=== PATIENT | male | born 1965 | race Caucasian/White ===

== ENCOUNTER 2020-12-02 08:54 | Inpatient (IN) ==
--- NOTE | 2020-12-02 09:48 | Emergency Department Note ---
History of Present Illness General Chief complaint: Shortness of Breath/Dyspnea Stated complaint: SOB,WEAKNESS,CP,NO APPETITE,COUGH Time Seen by Provider: 12/02/20 09:09 Source: patient Mode of arrival: ambulatory Limitations: no limitations History of Present Illness Maximum Pain Intensity: 5 This patient is a 55-year-old male who comes in after feeling sick since November 01 he is pretty sure he got Covid that day he felt very sick there is some exposures he had nausea fever cough body aches loss of taste and smell he was feeling better at one point until about 2 weeks ago he has had some shortness of breath he has been coughing he gets bilateral frontal chest pain when he coughs or takes a deep breath. His appetite is been decreased he has had a low-grade temperature but no significant fever. He was not been vaccinated. No dysuria hematuria. No fall or trauma. Home Medications Medication Instructions Recorded Confirmed Type No Known Home Medications 12/02/20 12/02/20 History Allergies Allergy/AdvReac Type Severity Reaction Status Date / Time No Known Allergies Allergy Unverified 12/02/20 09:39 Past Med/Surg History Medical History (Updated 12/02/20 @ 16:05 by Wil Ortega MD) No significant past medical history Surgical History (Updated 12/02/20 @ 14:50 by Zhanna Mcneal PA-C) No significant past surgical history Family History Mother Diabetes Hypertension Father Myocardial infarction Coronary heart disease Hypertension Diabetes Brother Diabetes Sister Diabetes Social History Smoking Status: Never smoker Tobacco Type: Smokeless Tobacco (Dip or Chew) Cigarettes Per Day: 1/2 can of snuff/day; Hx Alcohol Use: Yes Alcohol type: beer Alcohol Intake Frequency Comment: prior to covid sx, daily, last drink a month ago Hx Substance Use: No Preferred Language: French Communication Ability: Effective Flight Hostess Required: No Beliefs That Will Affect Care: None marital status: Current Living Situation: Spouse current occupational status: employed current occupation: [employer] Feels Safe at Home: Yes Review of Systems A total of 10 systems reviewed and were otherwise negative Physical Exam Vital Signs Vital Signs - 24 hr 12/02/20 09:01 12/02/20 10:35 12/02/20 10:37 Temperature 37.7 C H Temperature Source Temporal Artery Scan Pulse Rate 128 H 107 H Pulse Rate [Finger] 107 H Pulse Rate from SpO2 Sensor 108 H Pulse Rhythm [Finger] Pulse Strength [Finger] Respiratory Rate 24 22 21 Respiratory Effort / Characteristics Short of Breath Respiratory Depth Respiratory Pattern Blood Pressure 119/81 Blood Pressure [Left Arm] 124/79 Blood Pressure [Right Arm] Blood Pressure Mean 93 Blood Pressure Mean [Left Arm] 94 Blood Pressure Mean [Right Arm] Blood Pressure Position Sitting Blood Pressure Position [Right Arm] Pulse Oximetry 96 95 94 Oxygen Delivery Method Room Air Room Air Oxygen Flow Rate Sepsis Recent Fever Within 48 Hours No Sepsis New/Unexplained Change in Mental Status N/A Sepsis Action Taken by Nursing No Action Required 12/02/20 10:39 12/02/20 11:00 12/02/20 11:30 Temperature Temperature Source Pulse Rate 103 H 109 H Pulse Rate [Finger] Pulse Rate from SpO2 Sensor 103 H 106 H Pulse Rhythm [Finger] Pulse Strength [Finger] Respiratory Rate 25 H 22 Respiratory Effort / Characteristics Respiratory Depth Respiratory Pattern Blood Pressure Blood Pressure [Left Arm] Blood Pressure [Right Arm] Blood Pressure Mean Blood Pressure Mean [Left Arm] Blood Pressure Mean [Right Arm] Blood Pressure Position Blood Pressure Position [Right Arm] Pulse Oximetry 94 96 Oxygen Delivery Method Room Air Oxygen Flow Rate 95 Sepsis Recent Fever Within 48 Hours Sepsis New/Unexplained Change in Mental Status Sepsis Action Taken by Nursing 12/02/20 12:00 12/02/20 12:50 12/02/20 12:53 Temperature Temperature Source Pulse Rate 110 H 110 H Pulse Rate [Finger] 110 H Pulse Rate from SpO2 Sensor 110 H 110 H Pulse Rhythm [Finger] Regular Pulse Strength [Finger] Normal Respiratory Rate 26 H 25 H 22 Respiratory Effort / Characteristics Non-Labored Spontaneous Respiratory Depth Normal Respiratory Pattern Regular Blood Pressure 126/85 Blood Pressure [Left Arm] Blood Pressure [Right Arm] 126/85 Blood Pressure Mean 98 Blood Pressure Mean [Left Arm] Blood Pressure Mean [Right Arm] 98 Blood Pressure Position Blood Pressure Position [Right Arm] Lying Pulse Oximetry 95 95 95 Oxygen Delivery Method Room Air Oxygen Flow Rate Sepsis Recent Fever Within 48 Hours Sepsis New/Unexplained Change in Mental Status Sepsis Action Taken by Nursing 12/02/20 13:00 12/02/20 13:30 Temperature Temperature Source Pulse Rate 108 H 108 H Pulse Rate [Finger] Pulse Rate from SpO2 Sensor 108 H 109 H Pulse Rhythm [Finger] Pulse Strength [Finger] Respiratory Rate 25 H 18 Respiratory Effort / Characteristics Respiratory Depth Respiratory Pattern Blood Pressure 124/83 Blood Pressure [Left Arm] Blood Pressure [Right Arm] Blood Pressure Mean 96 Blood Pressure Mean [Left Arm] Blood Pressure Mean [Right Arm] Blood Pressure Position Blood Pressure Position [Right Arm] Pulse Oximetry 95 97 Oxygen Delivery Method Oxygen Flow Rate Sepsis Recent Fever Within 48 Hours Sepsis New/Unexplained Change in Mental Status Sepsis Action Taken by Nursing General: Well developed well nourished in no acute distress, breathing comfortably on room air. Normal speech HEENT: Normal cephalic atraumatic. Pupils are equal round and reactive to light. Extraocular movements are intact. Oropharynx is pink with moist mucous membranes. No swelling of the mouth lips or tongue. Neck: Supple with a midline trachea. No meningeal signs or stiffness, no JVD or bruits. No Stridor. Chest: Clear to auscultation bilaterally. No wheezes or rhonchi. No increased work of breathing. Heart: Regular rate and rhythm without murmurs or gallops. Abdomen: Soft nontender, nondistended without rebound guarding or rigidity. Extremities: No cyanosis clubbing or edema. No calf tenderness or assymetry Spine/Back. Non tender to palpation. No CVA tenderness Skin: Good turgor without rashes. Neurologic exam: Cranial nerves two through 12 are intact. Motor and sensation are intact and symmetrical throughout. Course Administered Medications Azithromycin (Azithromycin 250 Mg Tab) 500 mg PO [facility] Stop: 12/09/20 14:44 Last Admin: 12/02/20 15:50 Dose: 500 mg Documented by: [id number] Discontinued Medications Heparin Sodium (Porcine) (Heparin Sod (Porcine) 1000 Unit/Ml) 1 units IV NOW ONE Stop: 12/02/20 13:47 Last Admin: 12/02/20 14:20 Dose: 7,000 units Documented by: [id number] Cosigned by: [id number] Ioversol (Optiray 320 125ml) 120 ml IV ONCE ONE Stop: 12/02/20 12:30 Last Admin: 12/02/20 12:28 Dose: 120 ml Documented by: [id number] Medical Decision Making Differential Diagnosis Covid, sepsis, pneumonia, PE, pneumothorax, CHF Medical Records Attestation: I reviewed the patient's medical records. Home Medications Current Medication List: was personally reviewed by me Laboratory Data Attestation: I reviewed the patient's lab results. Result diagrams: 12/02/20 10:30 12/02/20 10:30 Lab Results 12/02/20 12/02/20 12/02/20 Range/Units 10:30 10:30 10:30 WBC 14.13 H (4.8-10.8) K/uL RBC 4.72 (4.7-6.1) M/uL Hgb 13.8 L (14.0-18.0) g/dL Hct 41.8 L (42-52) % MCV 88.6 (80-100) fL MCH 29.2 (25-34) pg MCHC 33.0 (32-36) g/dL RDW Std Deviation 45.2 (36.4-46.3) fL RDW Coeff of Tomas 13.9 (11.5-14.5) % Plt Count 245 (130-400) K/uL MPV 10.3 (7.4-10.4) fL Immature Gran % (Auto) 0.8 % Neut % (Auto) 78.6 % Lymph % (Auto) 11.6 % Rowan % (Auto) 7.5 % Eos % (Auto) 1.3 % Baso % (Auto) 0.2 % Neut # (Auto) 11.09 H (1.4-6.5) K/uL Lymph # (Auto) 1.64 (1.2-3.4) K/uL Rowan # (Auto) 1.06 H (0.11-0.59) K/uL Eos # (Auto) 0.19 (0-0.5) K/uL Baso # (Auto) 0.03 (0-0.2) K/uL Immature Gran # (Auto) 0.12 H (0.00-0.02) K/uL ESR (0-20) mm/hr PT 11.7 (9.0-12.0) Seconds INR 1.2 H (0.9-1.1) APTT 26.9 (21.0-31.0) Seconds PTT Ratio 1.0 D-Dimer 6750 H* (0-500) ug/L FEU Sodium 134 L (136-145) mmol/L Potassium 4.2 (3.5-5.1) mmol/L Chloride 101 (98-107) mmol/L Carbon Dioxide 25 (21-32) mmol/L Anion Gap 8.0 (3-11) BUN 12 (7-18) mg/dl Creatinine 0.82 (0.6-1.4) mg/dl Est Cr Clr Drug Dosing 124.1 ml/min Est GFR ( Amer) 114.6 ml/min Est GFR (Non-Af Amer) 98.9 ml/min BUN/Creatinine Ratio 14.7 (10-20) Glucose 135 H (70-99) mg/dl Lactate (0.4-2.0) mmol/L Calcium 9.2 (8.5-10.1) mg/dl Magnesium 2.4 (1.8-2.4) mg/dl Total Bilirubin 0.7 (0.2-1) mg/dl AST 439 H (15-37) U/L ALT 723 H (12-78) U/L Alkaline Phosphatase 152 H (45-117) U/L Troponin I < 0.015 (0-0.045) ng/ml Total Protein 7.7 (6.4-8.2) gm/dl Albumin 2.2 L (3.4-5.0) gm/dl Globulin 5.5 H (2.5-4.0) gm/dl Albumin/Globulin Ratio 0.4 L (0.9-2) Procalcitonin (0-0.5) ng/ml Urine Color Urine Appearance (Clear) Urine pH (4.5-7.5) Ur Specific Adams (1.000-1.030) Urine Protein (Negative) Urine Glucose (UA) (Negative) Urine Ketones (Negative) Urine Blood (Negative) Urine Nitrite (Negative) Urine Bilirubin (Negative) Urine Urobilinogen (Negative) Ur Leukocyte Esterase (Negative) Urine WBC (Auto) (0-5) /hpf Urine RBC (Auto) (0-4) /hpf U Hyaline Cast (Auto) (0-5) /lpf U Epithel Cells (Auto) (0-5) /lpf Urine Bacteria (Auto) (Negative) COVID-19 Eval Order SARS-CoV-2 (PCR) (Negative) 12/02/20 12/02/2021 Range/Units 10:30 10:30 10:30 WBC (4.8-10.8) K/uL RBC (4.7-6.1) M/uL Hgb (14.0-18.0) g/dL Hct (42-52) % MCV (80-100) fL MCH (25-34) pg MCHC (32-36) g/dL RDW Std Deviation (36.4-46.3) fL RDW Coeff of Tomas (11.5-14.5) % Plt Count (130-400) K/uL MPV (7.4-10.4) fL Immature Gran % (Auto) % Neut % (Auto) % Lymph % (Auto) % Rowan % (Auto) % Eos % (Auto) % Baso % (Auto) % Neut # (Auto) (1.4-6.5) K/uL Lymph # (Auto) (1.2-3.4) K/uL Rowan # (Auto) (0.11-0.59) K/uL Eos # (Auto) (0-0.5) K/uL Baso # (Auto) (0-0.2) K/uL Immature Gran # (Auto) (0.00-0.02) K/uL ESR (0-20) mm/hr PT (9.0-12.0) Seconds INR (0.9-1.1) APTT (21.0-31.0) Seconds PTT Ratio D-Dimer Cancelled (0-500) ug/L FEU Sodium (136-145) mmol/L Potassium (3.5-5.1) mmol/L Chloride (98-107) mmol/L Carbon Dioxide (21-32) mmol/L Anion Gap (3-11) BUN (7-18) mg/dl Creatinine (0.6-1.4) mg/dl Est Cr Clr Drug Dosing ml/min Est GFR ( Amer) ml/min Est GFR (Non-Af Amer) ml/min BUN/Creatinine Ratio (10-20) Glucose (70-99) mg/dl Lactate 1.7 (0.4-2.0) mmol/L Calcium (8.5-10.1) mg/dl Magnesium (1.8-2.4) mg/dl Total Bilirubin (0.2-1) mg/dl AST (15-37) U/L ALT (12-78) U/L Alkaline Phosphatase (45-117) U/L Troponin I (0-0.045) ng/ml Total Protein (6.4-8.2) gm/dl Albumin (3.4-5.0) gm/dl Globulin (2.5-4.0) gm/dl Albumin/Globulin Ratio (0.9-2) Procalcitonin 0.52 H (0-0.5) ng/ml Urine Color Urine Appearance (Clear) Urine pH (4.5-7.5) Ur Specific Adams (1.000-1.030) Urine Protein (Negative) Urine Glucose (UA) (Negative) Urine Ketones (Negative) Urine Blood (Negative) Urine Nitrite (Negative) Urine Bilirubin (Negative) Urine Urobilinogen (Negative) Ur Leukocyte Esterase (Negative) Urine WBC (Auto) (0-5) /hpf Urine RBC (Auto) (0-4) /hpf U Hyaline Cast (Auto) (0-5) /lpf U Epithel Cells (Auto) (0-5) /lpf Urine Bacteria (Auto) (Negative) COVID-19 Eval Order SARS-CoV-2 (PCR) (Negative) 12/02/20 12/02/20 12/02/20 Range/Units 10:30 10:35 10:35 WBC (4.8-10.8) K/uL RBC (4.7-6.1) M/uL Hgb (14.0-18.0) g/dL Hct (42-52) % MCV (80-100) fL MCH (25-34) pg MCHC (32-36) g/dL RDW Std Deviation (36.4-46.3) fL RDW Coeff of Tomas (11.5-14.5) % Plt Count (130-400) K/uL MPV (7.4-10.4) fL Immature Gran % (Auto) % Neut % (Auto) % Lymph % (Auto) % Rowan % (Auto) % Eos % (Auto) % Baso % (Auto) % Neut # (Auto) (1.4-6.5) K/uL Lymph # (Auto) (1.2-3.4) K/uL Rowan # (Auto) (0.11-0.59) K/uL Eos # (Auto) (0-0.5) K/uL Baso # (Auto) (0-0.2) K/uL Immature Gran # (Auto) (0.00-0.02) K/uL ESR 117 H (0-20) mm/hr PT (9.0-12.0) Seconds INR (0.9-1.1) APTT (21.0-31.0) Seconds PTT Ratio D-Dimer (0-500) ug/L FEU Sodium (136-145) mmol/L Potassium (3.5-5.1) mmol/L Chloride (98-107) mmol/L Carbon Dioxide (21-32) mmol/L Anion Gap (3-11) BUN (7-18) mg/dl Creatinine (0.6-1.4) mg/dl Est Cr Clr Drug Dosing ml/min Est GFR ( Amer) ml/min Est GFR (Non-Af Amer) ml/min BUN/Creatinine Ratio (10-20) Glucose (70-99) mg/dl Lactate (0.4-2.0) mmol/L Calcium (8.5-10.1) mg/dl Magnesium (1.8-2.4) mg/dl Total Bilirubin (0.2-1) mg/dl AST (15-37) U/L ALT (12-78) U/L Alkaline Phosphatase (45-117) U/L Troponin I (0-0.045) ng/ml Total Protein (6.4-8.2) gm/dl Albumin (3.4-5.0) gm/dl Globulin (2.5-4.0) gm/dl Albumin/Globulin Ratio (0.9-2) Procalcitonin (0-0.5) ng/ml Urine Color Urine Appearance (Clear) Urine pH (4.5-7.5) Ur Specific Adams (1.000-1.030) Urine Protein (Negative) Urine Glucose (UA) (Negative) Urine Ketones (Negative) Urine Blood (Negative) Urine Nitrite (Negative) Urine Bilirubin (Negative) Urine Urobilinogen (Negative) Ur Leukocyte Esterase (Negative) Urine WBC (Auto) (0-5) /hpf Urine RBC (Auto) (0-4) /hpf U Hyaline Cast (Auto) (0-5) /lpf U Epithel Cells (Auto) (0-5) /lpf Urine Bacteria (Auto) (Negative) COVID-19 Eval Order Covid19 at [facility] SARS-CoV-2 (PCR) POSITIVE A* (Negative) 12/02/20 Range/Units 12:48 WBC (4.8-10.8) K/uL RBC (4.7-6.1) M/uL Hgb (14.0-18.0) g/dL Hct (42-52) % MCV (80-100) fL MCH (25-34) pg MCHC (32-36) g/dL RDW Std Deviation (36.4-46.3) fL RDW Coeff of Tomas (11.5-14.5) % Plt Count (130-400) K/uL MPV (7.4-10.4) fL Immature Gran % (Auto) % Neut % (Auto) % Lymph % (Auto) % Rowan % (Auto) % Eos % (Auto) % Baso % (Auto) % Neut # (Auto) (1.4-6.5) K/uL Lymph # (Auto) (1.2-3.4) K/uL Rowan # (Auto) (0.11-0.59) K/uL Eos # (Auto) (0-0.5) K/uL Baso # (Auto) (0-0.2) K/uL Immature Gran # (Auto) (0.00-0.02) K/uL ESR (0-20) mm/hr PT (9.0-12.0) Seconds INR (0.9-1.1) APTT (21.0-31.0) Seconds PTT Ratio D-Dimer (0-500) ug/L FEU Sodium (136-145) mmol/L Potassium (3.5-5.1) mmol/L Chloride (98-107) mmol/L Carbon Dioxide (21-32) mmol/L Anion Gap (3-11) BUN (7-18) mg/dl Creatinine (0.6-1.4) mg/dl Est Cr Clr Drug Dosing ml/min Est GFR ( Amer) ml/min Est GFR (Non-Af Amer) ml/min BUN/Creatinine Ratio (10-20) Glucose (70-99) mg/dl Lactate (0.4-2.0) mmol/L Calcium (8.5-10.1) mg/dl Magnesium (1.8-2.4) mg/dl Total Bilirubin (0.2-1) mg/dl AST (15-37) U/L ALT (12-78) U/L Alkaline Phosphatase (45-117) U/L Troponin I (0-0.045) ng/ml Total Protein (6.4-8.2) gm/dl Albumin (3.4-5.0) gm/dl Globulin (2.5-4.0) gm/dl Albumin/Globulin Ratio (0.9-2) Procalcitonin (0-0.5) ng/ml Urine Color Dark Yellow Urine Appearance Clear (Clear) Urine pH 5.5 (4.5-7.5) Ur Specific Adams 1.023 (1.000-1.030) Urine Protein Trace H (Negative) Urine Glucose (UA) Negative (Negative) Urine Ketones Trace H (Negative) Urine Blood Negative (Negative) Urine Nitrite Negative (Negative) Urine Bilirubin Negative (Negative) Urine Urobilinogen Negative (Negative) Ur Leukocyte Esterase Negative (Negative) Urine WBC (Auto) 1-5 (0-5) /hpf Urine RBC (Auto) 0-4 (0-4) /hpf U Hyaline Cast (Auto) 5-10 H (0-5) /lpf U Epithel Cells (Auto) 10-20 H (0-5) /lpf Urine Bacteria (Auto) Negative (Negative) COVID-19 Eval Order SARS-CoV-2 (PCR) (Negative) Imaging Data Attestation: I personally reviewed and interpreted this imaging study as follows: My Impression: Chest x-rayno acute infiltrate, failure, pneumothorax Radiologist's Impression: Chest X-Ray 12/02/20 09:25 SINGLE VIEW CHEST CLINICAL HISTORY: Sepsis. FINDINGS: An AP, portable, upright chest radiograph is obtained. No prior studies are available for comparison at the time of dictation. The cardiomediastinal silhouette is unremarkable. There is mild bibasilar atelectasis. The lungs and pleural spaces are otherwise clear. No pneumothorax is seen. The bony thorax is grossly intact. IMPRESSION: No active disease in the chest. ACT 112: Negative or not required by law. Electronically signed by: Kareem Olivarez M.D. 12/02/2020 10:01 AM Abdomen/Pelvis CT 12/02/20 11:30 CT ANGIOGRAM OF THE CHEST; CT SCAN OF THE ABDOMEN AND PELVIS WITH IV CONTRAST CLINICAL HISTORY: Atypical chest pain. Dyspnea. Generalized weakness. Elevated hepatic transaminases. Leukocytosis. Covid. COMPARISON STUDY: Chest x-ray dated 12/02/2020. TECHNIQUE: Following the IV administration of 120 of Optiray 320, CT angiogram of the chest is performed from the upper abdomen to the thoracic inlet utilizing the pulmonary embolus protocol. Images are reviewed in the axial, sagittal, coronal planes. 3-D MIPS images are created and assessed. Subsequently, CT scan of the abdomen and pelvis was performed from the lung bases to the proximal femora. Images are reviewed in the axial, sagittal, and coronal planes. IV contrast was administered without complication. A dose lowering technique was utilized adhering to the principles of ALARA. CT DOSE: 1960.54 mGy.cm FINDINGS: CHEST: Thyroid: Imaged portions of the thyroid gland are normal in size and at tenuation. Thoracic aorta: The thoracic aorta is normal in caliber and demonstrates standard 3-vessel arch anatomy. No dissection is seen. Pulmonary vasculature: The pulmonary trunk is normal in caliber. There is extensive pulmonary embolus. Thrombus is seen within the main pulmonary artery bilaterally. Thrombus on the right extends into the right upper, middle, lower lobar pulmonary arteries, extending into segmental and subsegmental branches. Thrombus on the left extends into the left upper lobe pulmonary artery into segmental and subsegmental branches. Segmental and subsegmental pulmonary emboli are seen within the left lower lobe and lingula. Heart: The heart is top normal in size and without pericardial effusion. Lungs and pleural spaces: Evaluation of the lung parenchyma is significantly degraded by motion artifact. There are small right and trace left pleural effusions with bibasilar consolidation. The trachea and central airways are clear. A low suspicion 4 mm pleural-based nodule in the left lower lobe as seen on image #141. Mild groundglass opacities are noted in the upper lobes. Mediastinum: There are prominent mediastinal lymph nodes. A prevascular node measures 10 mm in short axis. The subcarinal node measures 14 mm in short axis. Melody: Prominent hilar nodes measure up to 11 mm in short axis. Axillae: There is no axillary lymphadenopathy. Bony thorax: No lytic or blastic lesions are identified. ABDOMEN AND PELVIS: Liver: The contrast-enhanced liver is enlarged, measuring 20.7 cm in length. The liver demonstrates diffusely diminished attenuation consistent with hepatic steatosis. There is no intrahepatic or ductal dilatation. The hepatic veins and portal veins are patent. Gallbladder: Unremarkable. Spleen: Normal in size and attenuation. Pancreas: There is a 1.6 cm ovoid hypervascular nodule within or adjacent to the pancreatic tail on image #120. The pancreas is otherwise normal in appearance. Adrenal glands: Unremarkable. Kidneys: The contrast enhanced kidneys are normal in size and without hydronephrosis. The kidneys enhance symmetrically. Abdominal vasculature: The abdominal aorta is normal in course and caliber. Stomach and bowel: There is a small hiatal hernia. An umbilical hernia contains a nonobstructed segment of small bowel. Mild fecal retention is seen throughout the colon. There is no bowel obstruction. There is mild colonic diverticulosis without CT evidence of acute diverticulitis. A small duodenal diverticulum is noted. There is mild nonspecific mesenteric infiltration identified around several loops of small bowel. No thick walled bowel loops are identified. There is no pneumatosis intestinalis or portal venous gas. The appendix is well- visualized and normal. Peritoneum: There is no intraperitoneal free air or abdominal ascites. Lymphadenopathy: None. Pelvic viscera: The bladder, prostate, and seminal vesicles are normal as visualized. Skeletal structures: There is mild lumbosacral spondylosis. Sclerotic change is noted in the sacroiliac joints, left greater than right. No lytic or blastic lesions are seen. IMPRESSION: 1. Extensive bilateral pulmonary emboli as above. 2. Small right and trace left pleural effusions with dependent bibasilar consolidation. This could represent atelectasis and/or pneumonia. Clinical correlation will be required. 3. Mild groundglass opacities are present in the upper lobes, likely corresponding to the reported history of a viral pneumonia. 4. There is mild nonspecific infiltration identified around several loops of small bowel. No bowel wall thickening is identified and there is no obstruction. No pneumatosis intestinalis or portal venous gas is seen. Correlate clinically for evidence of a mild nonspecific enteritis. 5. Prominent mediastinal and hilar lymph nodes are nonspecific and likely reactive. 6. There is a 1.6 cm ovoid hypervascular nodule within or adjacent to the pancreatic tail. This may represent a splenule. A pancreatic lesion is not excluded. Correlation with a nonemergent/outpatient contrast-enhanced pancreatic protocol MRI is recommended for further assessment. 7. An umbilical hernia contains a nonobstructed segment of small bowel. 8. Additional findings as above. ACT 112: Positive. There are findings on this exam that require communication between the performing entity and the patient following Patient Test Result Information Act ([place] Act 112) guidelines. Electronically signed by: Kareem Olivarez M.D. 12/02/2020 12:58 PM Chest CTA 12/02/20 11:30 CT ANGIOGRAM OF THE CHEST; CT SCAN OF THE ABDOMEN AND PELVIS WITH IV CONTRAST CLINICAL HISTORY: Atypical chest pain. Dyspnea. Generalized weakness. Elevated hepatic transaminases. Leukocytosis. Covid. COMPARISON STUDY: Chest x-ray dated 12/02/2020. TECHNIQUE: Following the IV administration of 120 of Optiray 320, CT angiogram of the chest is performed from the upper abdomen to the thoracic inlet utilizing the pulmonary embolus protocol. Images are reviewed in the axial, sagittal, coronal planes. 3-D MIPS images are created and assessed. Subsequently, CT scan of the abdomen and pelvis was performed from the lung bases to the proximal femora. Images are reviewed in the axial, sagittal, and coronal planes. IV contrast was administered without complication. A dose lowering technique was utilized adhering to the principles of ALARA. CT DOSE: 1960.54 mGy.cm FINDINGS: CHEST: Thyroid: Imaged portions of the thyroid gland are normal in size and attenuation. Thoracic aorta: The thoracic aorta is normal in caliber and demonstrates standard 3-vessel arch anatomy. No dissection is seen. Pulmonary vasculature: The pulmonary trunk is normal in caliber. There is extensive pulmonary embolus. Thrombus is seen within the main pulmonary artery bilaterally. Thrombus on the right extends into the right upper, middle, lower lobar pulmonary arteries, extending into segmental and subsegmental branches. Thrombus on the left extends into the left upper lobe pulmonary artery into segm ental and subsegmental branches. Segmental and subsegmental pulmonary emboli are seen within the left lower lobe and lingula. Heart: The heart is top normal in size and without pericardial effusion. Lungs and pleural spaces: Evaluation of the lung parenchyma is significantly degraded by motion artifact. There are small right and trace left pleural effusions with bibasilar consolidation. The trachea and central airways are clear. A low suspicion 4 mm pleural-based nodule in the left lower lobe as seen on image #141. Mild groundglass opacities are noted in the upper lobes. Mediastinum: There are prominent mediastinal lymph nodes. A prevascular node measures 10 mm in short axis. The subcarinal node measures 14 mm in short axis. Melody: Prominent hilar nodes measure up to 11 mm in short axis. Axillae: There is no axillary lymphadenopathy. Bony thorax: No lytic or blastic lesions are identified. ABDOMEN AND PELVIS: Liver: The contrast-enhanced liver is enlarged, measuring 20.7 cm in length. The liver demonstrates diffusely diminished attenuation consistent with hepatic steatosis. There is no intrahepatic or ductal dilatation. The hepatic veins and portal veins are patent. Gallbladder: Unremarkable. Spleen: Normal in size and attenuation. Pancreas: There is a 1.6 cm ovoid hypervascular nodule within or adjacent to the pancreatic tail on image #120. The pancreas is otherwise normal in appearance. Adrenal glands: Unremarkable. Kidneys: The contrast enhanced kidneys are normal in size and without hydronephrosis. The kidneys enhance symmetrically. Abdominal vasculature: The abdominal aorta is normal in course and caliber. Stomach and bowel: There is a small hiatal hernia. An umbilical hernia contains a nonobstructed segment of small bowel. Mild fecal retention is seen throughout the colon. There is no bowel obstruction. There is mild colonic diverticulosis without CT evidence of acute diverticulitis. A small duodenal diverticulum is noted. There is mild nonspecific mesenteric infiltration identified around several loops of small bowel. No thick walled bowel loops are identified. There is no pneumatosis intestinalis or portal venous gas. The appendix is well- visualized and normal. Peritoneum: There is no intraperitoneal free air or abdominal ascites. Lymphadenopathy: None. Pelvic viscera: The bladder, prostate, and seminal vesicles are normal as visualized. Skeletal structures: There is mild lumbosacral spondylosis. Sclerotic change is noted in the sacroiliac joints, left greater than right. No lytic or blastic lesions are seen. IMPRESSION: 1. Extensive bilateral pulmonary emboli as above. 2. Small right and trace left pleural effusions with dependent bibasilar c onsolidation. This could represent atelectasis and/or pneumonia. Clinical correlation will be required. 3. Mild groundglass opacities are present in the upper lobes, likely c orresponding to the reported history of a viral pneumonia. 4. There is mild nonspecific infiltration identified around several loops of small bowel. No bowel wall thickening is identified and there is no obstruction. No pneumatosis intestinalis or portal venous gas is seen. Correlate clinically for evidence of a mild nonspecific enteritis. 5. Prominent mediastinal and hilar lymph nodes are nonspecific and likely reactive. 6. There is a 1.6 cm ovoid hypervascular nodule within or adjacent to the pancreatic tail. This may represent a splenule. A pancreatic lesion is not excluded. Correlation with a nonemergent/outpatient contrast-enhanced pancreatic protocol MRI is recommended for further assessment. 7. An umbilical hernia contains a nonobstructed segment of small bowel. 8. Additional findings as above. ACT 112: Positive. There are findings on this exam that require communication between the performing entity and the patient following Patient Test Result Information Act ([place] Act 112) guidelines. Electronically signed by: Kareem Olivarez M.D. 12/02/2020 12:58 PM ECG Data Attestation: I personally reviewed and interpreted this ECG as follows: Indication: + SOB/dyspnea Rate (beats per minute): 108 Rhythm: + sinus tachycardia ECG Intervals/blocks: + Normal QRS, + Normal QT and + Normal AL ECG [facility]: + Normal ECG ST segments: + Normal ST segments ECG Findings: no PACs or no PVCs Comparison ECG Date: no prior available Prescription Drug Monitoring [place] Drug Monitoring Program reviewed and no issues identified MDM Narrative This patient comes in as described above. He was placed in room B10. He had Covid-like symptoms starting a month ago. He got better intermittently and then has been short of breath for the last week or so he looks well at rest and is not hypoxemic. IV access was established and blood work was obtained his chest x-ray was clear. EKG does not show any ischemic changes or ectopy. Troponin is not elevated. White count is mildly elevated. Hemoglobin is stable. He has no significant electrolyte or metabolic abnormalities. D-dimer was significantly elevated and in light of this I did do a CTA he does have extensive bilateral PE. I do not see a saddle emboli. The patient will need to come in for IV anticoagulation, I did order the standard IV heparin bolus and IV drip. I did discuss this with the patient prior as well as . He denies that he has had any recent surgery trauma or any GI bleeding history. The patient has been having symptoms for a month and is well outside of the window for monoclonal antibodies. He is not hypoxemic. His liver functions are elevated however on CT he has no acute abnormalities. [facility] will be admitted [facility]. Continuous cardiac monitoring: Orders placed in EMR for continuous cardiac monitoring. Upon my interpretation the patient was noted to be in sinus tachycardia with a rate of 100. Impression & Plan Pulmonary embolism, COVID, Transaminitis, SOB (shortness of breath) Discharge Plan Visit Data Chief Complaint: Shortness of Breath/Dyspnea Stated Complaint: SOB,WEAKNESS,CP,NO APPETITE,COUGH ED Provider: Wil Ortega Discharge Problem: Pulmonary embolism, COVID, Transaminitis, SOB (shortness of breath) Patient Disposition: Admitted As Inpatient Discharge Instructions Interventions: ED Discharge Assessment Last Done: 12/02/20 14:31
--- NOTE | 2020-12-02 10:02 | XRay Report ---
SINGLE VIEW CHEST CLINICAL HISTORY: Sepsis. FINDINGS: An AP, portable, upright chest radiograph is obtained. No prior studies are available for c omparison at the time of dictation. The cardiomediastinal silhouette is unremarkable. There is mild bibasilar atelectasis. The lungs and pleural spaces are otherwise clear. No pneumothorax is seen. The bony thorax is grossly intact. IMPRESSION: No active disease in the chest. ACT 112: Negative or not required by law. Electronically signed by: Kareem Olivarez M.D. 12/02/2020 10:01 AM
[2020-12-02 10:48] LABS: Basophils # (auto) 0.03 K/uL (0-0.2); Basophils % (auto) 0.2 %; Eosinophils # (auto) 0.19 K/uL (0-0.5); Eosinophils % (auto) 1.3 %; Hematocrit (blood only) 41.8 % (42-52); Hemoglobin 13.8 g/dL (14.0-18.0); Immature Granulocytes # (auto) 0.12 K/uL (0.00-0.02); Immature Granulocytes % (auto) 0.8 %; Lymphocytes # (auto) 1.64 K/uL (1.2-3.4); Lymphocytes % (auto) 11.6 %; Mean Corpuscular Hemoglobin 29.2 pg (25-34); Mean Corpuscular Volume 88.6 fL (80-100); Mean Platelet Volume 10.3 fL (7.4-10.4); Monocytes # (auto) 1.06 K/uL (0.11-0.59); Monocytes % (auto) 7.5 %; Neutrophils # (auto) 11.09 K/uL (1.4-6.5); Neutrophils % (auto) 78.6 %; Platelet Count 245 K/uL (130-400); RDW Coefficient of Variation 13.9 % (11.5-14.5); RDW Standard Deviation 45.2 fL (36.4-46.3); Red Blood Count 4.72 M/uL (4.7-6.1); White Blood Count 14.13 K/uL (4.8-10.8)
[2020-12-02 10:56] LABS: INR 1.2 (0.9-1.1); Partial Thromboplastin Time 26.9 Seconds (21.0-31.0); Prothrombin Time 11.7 Seconds (9.0-12.0)
[2020-12-02 11:03] LABS: Alanine Aminotransferase 723 U/L (12-78); Albumin Level 2.2 gm/dl (3.4-5.0); Aspartate Aminotransferase 439 U/L (15-37); BUN Creatinine Ratio 14.7 (10-20); Blood Urea Nitrogen 12 mg/dl (7-18); Calcium 9.2 mg/dl (8.5-10.1); Carbon Dioxide 25 mmol/L (21-32); Chloride 101 mmol/L (98-107); Creatinine Clr Calc Pharmacy 124.1 ml/min; Est GFR (African American) 114.6 ml/min; Est GFR (Non-African American) 98.9 ml/min; Glucose 135 mg/dl (70-99); Magnesium 2.4 mg/dl (1.8-2.4); Potassium 4.2 mmol/L (3.5-5.1); Sodium 134 mmol/L (136-145)
[2020-12-02 11:06] LABS: Albumin Globulin Ratio 0.4 (0.9-2); Alkaline Phosphatase 152 U/L (45-117); Bilirubin,Total 0.7 mg/dl (0.2-1); Globulin 5.5 gm/dl (2.5-4.0); Total Protein 7.7 gm/dl (6.4-8.2); Troponin I < 0.015 ng/ml (0-0.045)
[2020-12-02 11:27] LABS: D Dimer 6750 ug/L FEU (0-500)
[2020-12-02] MEDS ORDERED: OPTIRAY 320 125ml IV ONE (12:29)
--- NOTE | 2020-12-02 13:00 | CT Scan Report ---
CT ANGIOGRAM OF THE CHEST; CT SCAN OF THE ABDOMEN AND PELVIS WITH IV CONTRAST CLINICAL HISTORY: Atypical chest pain. Dyspnea. Generalized weakness. Elevated hepatic transaminases. Leukocytosis. Covid. COMPARISON STUDY: Chest x-ray dated 12/02/2020. TECHNIQUE: Following the IV administration of 120 of Optiray 320, CT angiogram of the chest is perfor med from the upper abdomen to the thoracic inlet utilizing the pulmonary embolus protocol. Images are reviewed in the axial, sagittal, coronal planes. 3-D MIPS images are created and assessed. Subsequen tly, CT scan of the abdomen and pelvis was performed from the lung bases to the proximal femora. Imag es are reviewed in the axial, sagittal, and coronal planes. IV contrast was administered without comp lication. A dose lowering technique was utilized adhering to the principles of ALARA. CT DOSE: 1960.54 mGy.cm FINDINGS: CHEST: Thyroid: Imaged portions of the thyroid gland are normal in size and attenuation. Thoracic aorta: The thoracic aorta is normal in caliber and demonstrates standard 3-vessel arch anato my. No dissection is seen. Pulmonary vasculature: The pulmonary trunk is normal in caliber. There is extensive pulmonary embolus . Thrombus is seen within the main pulmonary artery bilaterally. Thrombus on the right extends into t he right upper, middle, lower lobar pulmonary arteries, extending into segmental and subsegmental bra nches. Thrombus on the left extends into the left upper lobe pulmonary artery into segmental and subs egmental branches. Segmental and subsegmental pulmonary emboli are seen within the left lower lobe an d lingula. Heart: The heart is top normal in size and without pericardial effusion. Lungs and pleural spaces: Evaluation of the lung parenchyma is significantly degraded by motion artif act. There are small right and trace left pleural effusions with bibasilar consolidation. The trachea and central airways are clear. A low suspicion 4 mm pleural-based nodule in the left lower lobe as s een on image #141. Mild groundglass opacities are noted in the upper lobes. Mediastinum: There are prominent mediastinal lymph nodes. A prevascular node measures 10 mm in short axis. The subcarinal node measures 14 mm in short axis. Melody: Prominent hilar nodes measure up to 11 mm in short axis. Axillae: There is no axillary lymphadenopathy. Bony thorax: No lytic or blastic lesions are identified. ABDOMEN AND PELVIS: Liver: The contrast-enhanced liver is enlarged, measuring 20.7 cm in length. The liver demonstrates d iffusely diminished attenuation consistent with hepatic steatosis. There is no intrahepatic or ductal dilatation. The hepatic veins and portal veins are patent. Gallbladder: Unremarkable. Spleen: Normal in size and attenuation. Pancreas: There is a 1.6 cm ovoid hypervascular nodule within or adjacent to the pancreatic tail on i mage #120. The pancreas is otherwise normal in appearance. Adrenal glands: Unremarkable. Kidneys: The contrast enhanced kidneys are normal in size and without hydronephrosis. The kidneys enh ance symmetrically. Abdominal vasculature: The abdominal aorta is normal in course and caliber. Stomach and bowel: There is a small hiatal hernia. An umbilical hernia contains a nonobstructed segme nt of small bowel. Mild fecal retention is seen throughout the colon. There is no bowel obstruction. There is mild colonic diverticulosis without CT evidence of acute diverticulitis. A small duodenal di verticulum is noted. There is mild nonspecific mesenteric infiltration identified around several loop s of small bowel. No thick walled bowel loops are identified. There is no pneumatosis intestinalis or portal venous gas. The appendix is well-visualized and normal. Peritoneum: There is no intraperitoneal free air or abdominal ascites. Lymphadenopathy: None. Pelvic viscera: The bladder, prostate, and seminal vesicles are normal as visualized. Skeletal structures: There is mild lumbosacral spondylosis. Sclerotic change is noted in the sacroili ac joints, left greater than right. No lytic or blastic lesions are seen. IMPRESSION: 1. Extensive bilateral pulmonary emboli as above. 2. Small right and trace left pleural effusions with dependent bibasilar consolidation. This could re present atelectasis and/or pneumonia. Clinical correlation will be required. 3. Mild groundglass opacities are present in the upper lobes, likely corresponding to the reported hi story of a viral pneumonia. 4. There is mild nonspecific infiltration identified around several loops of small bowel. No bowel wa ll thickening is identified and there is no obstruction. No pneumatosis intestinalis or portal venous gas is seen. Correlate clinically for evidence of a mild nonspecific enteritis. 5. Prominent mediastinal and hilar lymph nodes are nonspecific and likely reactive. 6. There is a 1.6 cm ovoid hypervascular nodule within or adjacent to the pancreatic tail. This may r epresent a splenule. A pancreatic lesion is not excluded. Correlation with a nonemergent/outpatient c ontrast-enhanced pancreatic protocol MRI is recommended for further assessment. 7. An umbilical hernia contains a nonobstructed segment of small bowel. 8. Additional findings as above. ACT 112: Positive. There are findings on this exam that require communication between the performing entity and the patient following Patient Test Result Information Act ([place] Act 112) guidelines. Electronically signed by: Kareem Olivarez M.D. 12/02/2020 12:58 PM
[2020-12-02 13:04] LABS: Appearance Urine Clear (Clear); Bacteria Urine Automated Negative (Negative); Bilirubin Urine Negative (Negative); Blood Urine Negative (Negative); Color Urine Dark Yellow; Glucose Urine UA Negative (Negative); Ketones Urine Trace (Negative); Leukocyte Esterase Urine Negative (Negative); Nitrite Urine Negative (Negative); Protein Urine Trace (Negative); RBC Urine Automated 0-4 /hpf (0-4); Specific Gravity Urine 1.023 (1.000-1.030); Urobilinogen Urine Negative (Negative); pH Urine 5.5 (4.5-7.5)
[2020-12-02] MEDS ORDERED: Heparin IV Adult Wt-Based Standard WITH Bolus Protocol IV STA (13:31)
[2020-12-02] MEDS ORDERED: HEPARIN SOD (PORCINE) 1000 UNIT/ML IV ONE ×3 (13:46→23:00)
[2020-12-02] MEDS ORDERED: MAGNESIUM HYDROXIDE SUSP 30 ML UDC PO PRN (14:40)
[2020-12-02] MEDS ORDERED: ALUMINUM/MAGNESIUM SUSP 30 ML UDC PO PRN (14:40)
[2020-12-02] MEDS ORDERED: ACETAMINOPHEN 325 MG TAB PO PRN (14:40)
[2020-12-02] MEDS ORDERED: ONDANSETRON INJ 2 MG/ML 2 ML VIAL IV PRN (14:40)
[2020-12-02] MEDS ORDERED: POLYETHYLENE (MIRALAX) 17 GM PACK PO PRN (14:40)
--- NOTE | 2020-12-02 14:41 | History & Physical Report ---
Date of Service December 02, 2020 Assessment & Plan (1) COVID: (2) Pulmonary embolism: Plan: Covid-19 +, sx started 1 month ago on 11/01/20 CTA Chest: The pulmonary trunk is normal in caliber. There is extensive pulmonary embolus. Thrombus is seen within the main pulmonary artery bilaterally. Thrombus on the right extends into the right upper, middle, lower lobar pulmonary arteries, extending into segmental and subsegmental branches. Thrombus on the left extends into the left upper lobe pulmonary artery into segmental and subsegmental branches. Segmental and subsegmental pulmonary emboli are seen within the left lower lobe and lingula. ESR: 117 CRP: 15.20 Ferritin: 6090.7 Procal: 0.54 He is not hypoxic and does not meet treatment criteria for covid PNA Start IV heparin bolus and gtt consult pulm given extensive clot burden - appreciate their input, troponin WNL, obtai pro bnp given elevated procalcitonin, WBC will start empiric IV rocephin 2g daily and oral azithromycin 500mg daily for CAP (3) Abnormal CT of the abdomen: Plan: CT a/p: There is a 1.6 cm ovoid hypervascular nodule within or adjacent to the pancreatic tail. This may represent a splenule. A pancreatic lesion is not excluded. Correlation with a nonemergent/outpatient contrast-enhanced pancreatic protocol MRI is recommended for further assessment. (4) Transaminitis: Plan: AST 439, ALT 723, ALP 152, Total Bili 0.7 No GI Sx obtain acute hep panel possibly in setting of viral illness CT a/p: Hepatic steatosis, gallbladder normal, no intrahepatic biliary duct dilatation + history of significant alcohol use, daily beer drinker, last drink 1 month ago prior to coming in with Covid consult GI Dispo: PCU PCP: None, will need to establish PCP at discharge FULL CODE Pt was seen and examined in collaboration with Dr. Pitts, please see addendum Admission and Anticipated Discharge Date Admission Date: December 02, 2020 History of Present Illness Chief Complaint: Worsening SOB x 2 weeks. Primary Care Provider: NO PCP This is a 55-year-old male who has no known past medical history who presents ED secondary to worsening shortness of breath x 2 week. He states approximately 1 month ago on 11/01 he started developing Covid-like symptoms including sinus congestion, cough, fatigue, lack of appetite, loss of taste and smell and fever. He had fever as high as 104. He states a week prior to symptom onset he was at races with his 1 friend who is currently hospitalized and not doing well from COVID-19. He developed symptoms shortly after his friend. He did not get tested as an outpt. He had severe symptoms for approximately 2 weeks and symptoms started to improve. He had lack of appetite and fatigue linger for the past 2 weeks. He also has developed increasing shortness of breath and fatigue with minimal exertion. He was seen by his niece yesterday who is a nurse and encouraged him to come to the ER today for evaluation. In ED patient remained hemodynamically stable although he was tachycardic. Chest x-ray was performed and was negative for acute IA. Chest CTA revealed extensive bilateral pulmonary emboli with thrombus seen in the main pulmonary artery bilaterally. He tested positive for COVID-19. Number also notable for leukocytosis at 14.13k, elevated D-dimer 6750, glucose 135, AST 49, ALT 723, alk phos 152 Calcitonin 0.52. His urinalysis was negative. In ED he was started on IV heparin bolus and drip. Of significance patient does not have a primary care provider. He has not seen a physician in over 25 years. He does not smoke but does use smokeless tobacco about half a can a day. He also was a daily beer drinker until the past month and being sick with Covid. He admits to living with his and children who are all fully vaccinated. His did develop minor symptoms but has resolved. He is currently not vaccinated. Allergies Allergy/AdvReac Type Severity Reaction Status Date / Time No Known Allergies Allergy Unverified 12/02/20 09:39 Home Medications Medication Instructions Recorded Confirmed Type No Known Home Medications 12/02/20 12/02/20 History Past Med/Surg History Medical History No significant past medical history Surgical History (Updated 12/02/20 @ 14:50 by Zhanna Mcneal PA-C) No significant past surgical history Family History Mother Diabetes Hypertension Father Myocardial infarction Coronary heart disease Hypertension Diabetes Brother Diabetes Sister Diabetes Social History Smoking Status: Never smoker Tobacco Type: Smokeless Tobacco (Dip or Chew) Cigarettes Per Day: 1/2 can of snuff/day; Hx Alcohol Use: Yes Alcohol type: beer Alcohol Intake Frequency Comment: prior to covid sx, daily, last drink a month ago Hx Substance Use: No Preferred Language: [place] Citizen Communication Ability: Effective Nail Specialist Required: No Beliefs That Will Affect Care: None marital status: Current Living Situation: Spouse current occupational status: employed current occupation: [employer] Feels Safe at Home: Yes Review of Systems Review of Systems: All systems reviewed & are unremarkable except as noted in HPI & below Physical Exam Physical Exam: Constitutional: WD/WN, vitals as above, NAD, sitting up in bed, pleasant, conversing easily Head: Normocephalic, Atraumatic Eyes: PERRL, conjunctivae normal, anicteric sclerae ENMT: external ear and nose normal, oropharynx normal Neck: trachea midline, no thyromegaly normal visual inspection Respiratory: normal respiratory effort, lungs clear to auscultation, no wheeze, rales, rhonchi. Normal insp/exp effort, no accessory muscle use Cardiovascular: RRR, no murmur, no edema Vessels: no JVD or carotid bruit Chest: normal inspection of chest Abdomen: normal bowel sounds, soft, nontender, no hepatosplenomegaly Musculoskeletal: no cyanosis or clubbing, extremities motor strength 5/5 Skin: no rashes, warm and dry normal turgor Neurologic: PERRL, EOMI, accommodation nl, no face palsy, no dysarthria CN's II-XI intact bilaterally and moves all extremities Psychiatric: A+Ox3, euthymic affect Lymphatic: no cervical or axillary lymphadenopathy : deferred Results & Data Results & Data ([facility]) Vital Signs (Past 12 Hours) Vital Signs Temp Pulse Pulse Resp BP BP BP 12/02/20 14:00 106 H 16 115/78 12/02/20 13:30 108 H 18 12/02/20 13:00 108 H 25 H 124/83 12/02/20 12:53 110 H 22 126/85 12/02/20 12:50 110 H 25 H 126/85 12/02/20 12:00 110 H 26 H 12/02/20 11:30 109 H 22 12/02/20 11:00 103 H 25 H 12/02/20 10:37 107 H 21 12/02/20 10:35 107 H 22 124/79 12/02/20 09:01 37.7 C H 128 H 24 119/81 Pulse Ox 12/02/20 14:00 94 12/02/20 13:30 97 12/02/20 13:00 95 12/02/20 12:53 95 12/02/20 12:50 95 12/02/20 12:00 95 12/02/20 11:30 96 12/02/20 11:00 94 12/02/20 10:37 94 12/02/20 10:35 95 12/02/20 09:01 96 Diagnostic Findings Chest X-Ray 12/02/20 09:25 SINGLE VIEW CHEST CLINICAL HISTORY: Sepsis. FINDINGS: An AP, portable, upright chest radiograph is obtained. No prior studies are available for comparison at the time of dictation. The cardiomediastinal silhouette is unremarkable. There is mild bibasilar atelectasis. The lungs and pleural spaces are otherwise clear. No pneumothorax is seen. The bony thorax is grossly intact. IMPRESSION: No active disease in the chest. ACT 112: Negative or not required by law. Electronically signed by: Kareem Olivarez M.D. 12/02/2020 10:01 AM Abdomen/Pelvis CT 12/02/20 11:30 CT ANGIOGRAM OF THE CHEST; CT SCAN OF THE ABDOMEN AND PELVIS WITH IV CONTRAST CLINICAL HISTORY: Atypical chest pain. Dyspnea. Generalized weakness. Elevated hepatic transaminases. Leukocytosis. Covid. COMPARISON STUDY: Chest x-ray dated 12/02/2020. TECHNIQUE: Following the IV administration of 120 of Optiray 320, CT angiogram of the chest is performed from the upper abdomen to the thoracic inlet utilizing the pulmonary embolus protocol. Images are reviewed in the axial, sagittal, coronal planes. 3-D MIPS images are created and assessed. Subsequently, CT scan of the abdomen and pelvis was performed from the lung bases to the proximal femora. Images are reviewed in the axial, sagittal, and coronal planes. IV contrast was administered without complication. A dose lowering technique was utilized adhering to the principles of ALARA. CT DOSE: 1960.54 mGy.cm FINDINGS: CHEST: Thyroid: Imaged portions of the thyroid gland are normal in size and attenuation. Thoracic aorta: The thoracic aorta is normal in caliber and demonstrates standard 3-vessel arch anatomy. No dissection is seen. Pulmonary vasculature: The pulmonary trunk is normal in caliber. There is extensive pulmonary embolus. Thrombus is seen within the main pulmonary artery bilaterally. Thrombus on the right extends into the right upper, middle, lower lobar pulmonary arteries, extending into segmental and subsegmental branches. Thrombus on the left extends into the left upper lobe pulmonary artery into segmental and subsegmental branches. Segmental and subsegmental pulmonary emboli are seen within the left lower lobe and lingula. Heart: The heart is top normal in size and without pericardial effusion. Lungs and pleural spaces: Evaluation of the lung parenchyma is significantly degraded by motion artifact. There are small right and trace left pleural effusions with bibasilar consolidation. The trachea and central airways are clear. A low suspicion 4 mm pleural-based nodule in the left lower lobe as seen on image #141. Mild groundglass opacities are noted in the upper lobes. Mediastinum: There are prominent mediastinal lymph nodes. A prevascular node measures 10 mm in short axis. The subcarinal node measures 14 mm in short axis. Melody: Prominent hilar nodes measure up to 11 mm in short axis. Axillae: There is no axillary lymphadenopathy. Bony thorax: No lytic or blastic lesions are identified. ABDOMEN AND PELVIS: Liver: The contrast-enhanced liver is enlarged, measuring 20.7 cm in length. The liver demonstrates diffusely diminished attenuation consistent with hepatic steatosis. There is no intrahepatic or ductal dilatation. The hepatic veins and portal veins are patent. Gallbladder: Unremarkable. Spleen: Normal in size and attenuation. Pancreas: There is a 1.6 cm ovoid hypervascular nodule within or adjacent to the pancreatic tail on image #120. The pancreas is otherwise normal in appearance. Adrenal glands: Unremarkable. Kidneys: The contrast enhanced kidneys are normal in size and without hydronephrosis. The kidneys enhance symmetrically. Abdominal vasculature: The abdominal aorta is normal in course and caliber. Stomach and bowel: There is a small hiatal hernia. An umbilical hernia contains a nonobstructed segment of small bowel. Mild fecal retention is seen throughout the colon. There is no bowel obstruction. There is mild colonic diverticulosis without CT evidence of acute diverticulitis. A small duodenal diverticulum is noted. There is mild nonspecific mesenteric infiltration identified around several loops of small bowel. No thick walled bowel loops are identified. There is no pneumatosis intestinalis or portal venous gas. The appendix is well- visualized and normal. Peritoneum: There is no intraperitoneal free air or abdominal ascites. Lymphadenopathy: None. Pelvic viscera: The bladder, prostate, and seminal vesicles are normal as visualized. Skeletal structures: There is mild lumbosacral spondylosis. Sclerotic change is noted in the sacroiliac joints, left greater than right. No lytic or blastic lesions are seen. IMPRESSION: 1. Extensive bilateral pulmonary emboli as above. 2. Small right and trace left pleural effusions with dependent bibasilar consolidation. This could represent atelectasis and/or pneumonia. Clinical correlation will be required. 3. Mild groundglass opacities are present in the upper lobes, likely corresponding to the reported history of a viral pneumonia. 4. There is mild nonspecific infiltration identified around several loops of small bowel. No bowel wall thickening is identified and there is no obstruction. No pneumatosis intestinalis or portal venous gas is seen. Correlate clinically for evidence of a mild nonspecific enteritis. 5. Prominent mediastinal and hilar lymph nodes are nonspecific and likely reactive. 6. There is a 1.6 cm ovoid hypervascular nodule within or adjacent to the pancreatic tail. This may represent a splenule. A pancreatic lesion is not excluded. Correlation with a nonemergent/outpatient contrast-enhanced pancreatic protocol MRI is recommended for further assessment. 7. An umbilical hernia contains a nonobstructed segment of small bowel. 8. Additional findings as above. ACT 112: Positive. There are findings on this exam that require communication between the performing entity and the patient following Patient Test Result Information Act ([place] Act 112) guidelines. Electronically signed by: Kareem Olivarez M.D. 12/02/2020 12:58 PM Chest CTA 12/02/20 11:30 CT ANGIOGRAM OF THE CHEST; CT SCAN OF THE ABDOMEN AND PELVIS WITH IV CONTRAST CLINICAL HISTORY: Atypical chest pain. Dyspnea. Generalized weakness. Elevated hepatic transaminases. Leukocytosis. Covid. COMPARISON STUDY: Chest x-ray dated 12/02/2020. TECHNIQUE: Following the IV administration of 120 of Optiray 320, CT angiogram of the chest is performed from the upper abdomen to the thoracic inlet utilizing the pulmonary embolus protocol. Images are reviewed in the axial, sagittal, coronal planes. 3-D MIPS images are created and assessed. Subsequently, CT scan of the abdomen and pelvis was performed from the lung bases to the proximal femora. Images are reviewed in the axial, sagittal, and coronal planes. IV contrast was administered without complication. A dose lowering technique was utilized adhering to the principles of ALARA. CT DOSE: 1960.54 mGy.cm FINDINGS: CHEST: Thyroid: Imaged portions of the thyroid gland are normal in size and attenuation. Thoracic aorta: The thoracic aorta is normal in caliber and demonstrates standard 3-vessel arch anatomy. No dissection is seen. Pulmonary vasculature: The pulmonary trunk is normal in caliber. There is extensive pulmonary embolus. Thrombus is seen within the main pulmonary artery bilaterally. Thrombus on the right extends into the right upper, middle, lower lobar pulmonary arteries, extending into segmental and subsegmental branches. Thrombus on the left extends into the left upper lobe pulmonary artery into segmental and subsegmental branches. Segmental and subsegmental pulmonary emboli are seen within the left lower lobe and lingula. Heart: The heart is top normal in size and without pericardial effusion. Lungs and pleural spaces: Evaluation of the lung parenchyma is significantly degraded by motion artifact. There are small right and trace left pleural effusions with bibasilar consolidation. The trachea and central airways are clear. A low suspicion 4 mm pleural-based nodule in the left lower lobe as seen on image #141. Mild groundglass opacities are noted in the upper lobes. Mediastinum: There are prominent mediastinal lymph nodes. A prevascular node measures 10 mm in short axis. The subcarinal node measures 14 mm in short axis. Melody: Prominent hilar nodes measure up to 11 mm in short axis. Axillae: There is no axillary lymphadenopathy. Bony thorax: No lytic or blastic lesions are identified. ABDOMEN AND PELVIS: Liver: The contrast-enhanced liver is enlarged, measuring 20.7 cm in length. The liver demonstrates diffusely diminished attenuation consistent with hepatic steatosis. There is no intrahepatic or ductal dilatation. The hepatic veins and portal veins are patent. Gallbladder: Unremarkable. Spleen: Normal in size and attenuation. Pancreas: There is a 1.6 cm ovoid hypervascular nodule within or adjacent to the pancreatic tail on image #120. The pancreas is otherwise normal in appearance. Adrenal glands: Unremarkable. Kidneys: The contrast enhanced kidneys are normal in size and without hydronephrosis. The kidneys enhance symmetrically. Abdominal vasculature: The abdominal aorta is normal in course and caliber. Stomach and bowel: There is a small hiatal hernia. An umbilical hernia contains a nonobstructed segment of small bowel. Mild fecal retention is seen throughout the colon. There is no bowel obstruction. There is mild colonic diverticulosis without CT evidence of acute diverticulitis. A small duodenal diverticulum is noted. There is mild nonspecific mesenteric infiltration identified around several loops of small bowel. No thick walled bowel loops are identified. There is no pneumatosis intestinalis or portal venous gas. The appendix is well- visualized and normal. Peritoneum: There is no intraperitoneal free air or abdominal ascites. Lymphadenopathy: None. Pelvic viscera: The bladder, prostate, and seminal vesicles are normal as visualized. Skeletal structures: There is mild lumbosacral spondylosis. Sclerotic change is noted in the sacroiliac joints, left greater than right. No lytic or blastic l esions are seen. IMPRESSION: 1. Extensive bilateral pulmonary emboli as above. 2. Small right and trace left pleural effusions with dependent bibasilar consolidation. This could represent atelectasis and/or pneumonia. Clinical correlation will be required. 3. Mild groundglass opacities are present in the upper lobes, likely corresponding to the reported history of a viral pneumonia. 4. There is mild nonspecific infiltration identified around several loops of small bowel. No bowel wall thickening is identified and there is no obstruction. No pneumatosis intestinalis or portal venous gas is seen. Correlate clinically for evidence of a mild nonspecific enteritis. 5. Prominent mediastinal and hilar lymph nodes are nonspecific and likely reactive. 6. There is a 1.6 cm ovoid hypervascular nodule within or adjacent to the pancreatic tail. This may represent a splenule. A pancreatic lesion is not excluded. Correlation with a nonemergent/outpatient contrast-enhanced pancreatic protocol MRI is recommended for further assessment. 7. An umbilical hernia contains a nonobstructed segment of small bowel. 8. Additional findings as above. ACT 112: Positive. There are findings on this exam that require communication between the performing entity and the patient following Patient Test Result [place] Act ([place] Act 112) guidelines. Electronically signed by: Kareem Olivarez M.D. 12/02/2020 12:58 PM Medications Administered Medication List Discontinued Medications Heparin Sodium (Porcine) (Heparin Sod (Porcine) 1000 Unit/Ml) 1 units IV NOW ONE Stop: 12/02/20 13:47 Last Admin: 12/02/20 14:20 Dose: 7,000 units Documented by: [id number] Cosigned by: [id number] Ioversol (Optiray 320 125ml) 120 ml IV ONCE ONE Stop: 12/02/20 12:30 Last Admin: 12/02/20 12:28 Dose: 120 ml Documented by: [id number] ECG Rate (beats per minute): 108 Rhythm: sinus tachycardia COVID-19 Results Results COVID-19 Adm Lab Results: RBC 4.12 M/uL (4.7-6.1) L 12/03/20 WBC 10.92 K/uL (4.8-10.8) H 12/03/20 Hgb 12.4 g/dL (14.0-18.0) L 12/03/20 Hct 36.4 % (42-52) L 12/03/20 Plt Count 204 K/uL (130-400) 12/03/20 Neutrophils (%) (Auto) 74.3 % 12/03/20 Lymphocytes (%) (Auto) 14.7 % 12/03/20 Monocytes # (Auto) 0.94 K/uL (0.11-0.59) H 12/03/20 Eosinophils # (Auto) 0.15 K/uL (0-0.5) 12/03/20 Immature Granulocyte % (Auto) 0.7 % 12/03/20 Neutrophils # (Auto) 8.11 K/uL (1.4-6.5) H 12/03/20 Lymphocytes # (Auto) 1.61 K/uL (1.2-3.4) 12/03/20 Monocytes # (Auto) 0.94 K/uL (0.11-0.59) H 12/03/20 Eosinophils # (Auto) 0.15 K/uL (0-0.5) 12/03/20 Basophils # (Auto) 0.03 K/uL (0-0.2) 12/03/20 Immature Granulocyte # (Auto) 0.08 K/uL (0.00-0.02) H 12/03/20 Na 134 mmol/L (136-145) L 12/03/20 K 3.8 mmol/L (3.5-5.1) 12/03/20 Cl 101 mmol/L (98-107) 12/03/20 CO2 26 mmol/L (21-32) 12/03/20 Anion Gap 7.0 (3-11) 12/03/20 BUN 9 mg/dl (7-18) 12/03/20 Creatinine 0.68 mg/dl (0.6-1.4) 12/03/20 BUN/Creatinine Ratio 13.4 (10-20) 12/03/20 Glucose Level 123 mg/dl (70-99) H 12/03/20 Ca 8.7 mg/dl (8.5-10.1) 12/03/20 Total Bilirubin 0.7 mg/dl (0.2-1) 12/02/20 AST/SGOT 439 U/L (15-37) H 12/02/20 ALT/SGPT 723 U/L (12-78) H 12/02/20 Alkaline Phosphatase 152 U/L (45-117) H 12/02/20 Total Protein 7.7 gm/dl (6.4-8.2) 12/02/20 Albumin 2.2 gm/dl (3.4-5.0) L 12/02/20 Globulin 5.5 gm/dl (2.5-4.0) H 12/02/20 Albumin/Globulin Ratio 0.4 (0.9-2) L 12/02/20 Troponin I < 0.015 ng/ml (0-0.045) 12/02/20 BR-Fgm-R-Type Natriuretic Pep 35 pg/ml (0-900) 12/02/20 CRP 15.20 mg/dl (0-0.29) H 12/02/20 Procalcitonin 0.52 ng/ml (0-0.5) H 12/02/20 Ferritin 6090.7 ng/ml (8-388) H 12/02/20 D-Dimer 6750 ug/L FEU (0-500) H* 12/02/20 PTT 40.1 Seconds (21.0-31.0) H 12/03/20 INR 1.2 (0.9-1.1) H 12/02/20 COVID-19 PCR POSITIVE (Negative) A* 12/02/20 Chest X-Ray 12/02/20 Code Status & VTE Plan Code Status FULL CODE VTE Prophylaxis Plan VTE Prophylaxis will be ordered: No Supervising Physician Co-Signing Physician Notes I have seen and examined the patient and have discussed the case with the provider above. I agree with the assessment and plan as stated with the following exceptions. 55 yo M with h/o recent covid-19 infection one month ago presents with worsening shortness of breath and found to have extensive pulmonary emboli. He reports no h/o blood clot but states that his brother did have a blood clot in the past. He is denying chest pain and is not requiring oxygen supplementation at this time. He is very nervous about being in the hospital and is looking to leave as soon as able. There is a questionable pneumonia on imaging, for which he is being started on antibiotics. He has no medical insurance. Physical exam reflecting crackles at the bilateral bases, otherwise no rhochi or rales. He is not working to breathe. He has a normal abdominal exam and denies pain. Legs are not painful with squeezing and there is no edema present. Agree with plan above to treat with heparin initially, with likely transition to Lovenox and coumadin given his lack of medical insurance and the known expense of these anticoagulants. For the Lovenox, he may receive a drug coupon that is <$100 for 10 syringes. Additionally, will need to trend the LFTs in am. This patient hasn't seen a medical provider in 25 years reportedly. Will need to ensure no acute liver pathology present such as hepatitis. Liver ultrasound cannot be performed in setting of covid-19. Lower extremity ultrasound is also not being performed as it will not exchange administrator if a DVT were present. Elevated LFTs likely related to viral illness, however, shock liver considered 2/2 clot. He is clinically well appearing, will monitor overnight in the PCU. DO Hong
[2020-12-02] MEDS ORDERED: AZITHROMYCIN 250 MG TAB PO SCH (14:45)
--- NOTE | 2020-12-02 14:58 | Pulmonary Consultation ---
Date of Consultation December 02, 2020 Assessment & Plan (1) Pulmonary embolism: (2) COVID: Impression: 55-year-old male with likely diagnosis of Covid 4 weeks ago who presents now with chest pain shortness of breath and acute bilateral PEs. He is hemodynamically stable with the exception of slight tachycardia. He is not requiring any supplemental oxygen. Recommendations: 1. Acute PE: Continue anticoagulation the form of heparin. His troponin was negative. Recommend checking BNP. If this is negative, I do not think he would require an echocardiogram and he can likely be transitioned to oral anticoagulation and potentially dismissed from the hospital. He will require at least 6 months of anticoagulation for PE in association with Covid. 2. Age-appropriate cancer screening should be conducted in the outpatient setting when clinically feasible. 3. Covid: The patient is not hypoxemic. He does not meet criteria for any adjuvant therapies including dexamethasone, remdesivir, or immune modulators. Continue to follow clinically at this point time but would not keep him in the hospital for this diagnosis. 4. Possible pneumonia: The patient does have some groundglass opacities and compressive atelectasis at the bases. Is been initiated on Rocephin and azithromycin with anything to reasonable. Rocephin can be increased to 1 g daily and azithromycin should be decreased to 250 mg daily. He can likely been transition to oral antibiotics relatively quickly. Thanks for the opportunity participating in the care of this patient. We will review his labs tomorrow and clinical response. Feel free to contact us with questions or concerns. History of Present Illness Attending Physician: Laura Pitts, History of Present Illness Asked by hospitalist service to evaluate this patient with acute PE and positive Covid test. History is obtained from discussion with the patient and reviewed electronic medical record. Patient is a 55-year-old non-smoking male who is not vaccinated for Covid. He has been feeling poorly since November 01. He was never tested for Covid. He had nausea cough loss of taste and smell and subjective fevers but never sought medical attention. 2 weeks ago he had some shortness of breath and frontal chest pain. This prompted him to be seen in the emergency room. D-dimer was elevated and a CT angiogram was performed which revealed fairly extensive PEs. He was initiated on heparin and has been admitted to the hospitalist service. The patient reports no prior history of DVT or PE. He thinks his brother may have had a blood clot but he is unsure. He has not had colon cancer screening. He is not had any hemoptysis. No syncope presyncope. Allergies Allergy/AdvReac Type Severity Reaction Status Date / Time No Known Allergies Allergy Unverified 12/02/20 09:39 Home Medications Medication Instructions Recorded Confirmed Type No Known Home Medications 12/02/20 12/02/20 History Patient History Medical History (Updated 12/02/20 @ 14:55 by Dillan Gil MD) No significant past medical history Surgical History (Updated 12/02/20 @ 14:50 by Zhanna Mcneal PA-C) No significant past surgical history Family History Mother Diabetes Hypertension Father Myocardial infarction Coronary heart disease Hypertension Diabetes Brother Diabetes Sister Diabetes Social History Smoking Status: Never smoker Tobacco Type: Smokeless Tobacco (Dip or Chew) Cigarettes Per Day: 1/2 can of snuff/day; Do You Dip or Chew Tobacco: Yes; Tobacco Cessation Education Requested by Patient: Yes Hx Alcohol Use: Yes Alcohol type: beer Alcohol Intake Frequency Comment: prior to covid sx, daily, last drink a month ago Hx Substance Use: No Preferred Language: Azeri Communication Ability: Effective marital status: Current Living Situation: Spouse current occupational status: employed 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 Feels Safe at Home: Yes Review of Systems Review of Systems: For hospitalist admission H&P Physical Exam Constitutional: WD/WN, vitals as above Neck: trachea midline, no thyromegaly Respiratory: normal respiratory effort, lungs clear to auscultation Cardiovascular: RRR, no murmur, no edema Gastrointestinal (Abdomen): normal bowel sounds, soft, nontender, no hepatos plenomegaly Musculoskeletal: Extremities: extremities normal to inspection Skin: no rashes, warm and dry Neurologic: Nonfocal exam Lymphatic: no cervical lymphadenopathy Results & Data Results & Data ([facility]) Vital Signs (Past 12 Hours) Vital Signs Temp Pulse Pulse Resp BP BP BP 12/02/20 14:00 106 H 16 115/78 12/02/20 13:30 108 H 18 12/02/20 13:00 108 H 25 H 124/83 12/02/20 12:53 110 H 22 126/85 12/02/20 12:50 110 H 25 H 126/85 12/02/20 12:00 110 H 26 H 12/02/20 11:30 109 H 22 12/02/20 11:00 103 H 25 H 12/02/20 10:37 107 H 21 12/02/20 10:35 107 H 22 124/79 12/02/20 09:01 37.7 C H 128 H 24 119/81 Pulse Ox 12/02/20 14:00 94 12/02/20 13:30 97 12/02/20 13:00 95 12/02/20 12:53 95 12/02/20 12:50 95 12/02/20 12:00 95 12/02/20 11:30 96 12/02/20 11:00 94 12/02/20 10:37 94 12/02/20 10:35 95 12/02/20 09:01 96 Laboratory Results D-dimer 07/22/1950 AST ALT 439 and 723 respectively Alk phos 152 Troponin undetectable Procalcitonin 0.52 Critical Care Results & Data Vital Signs (Past 12 Hours) Vital Signs Temp Pulse Pulse Resp BP BP BP 12/02/20 14:00 106 H 16 115/78 12/02/20 13:30 108 H 18 12/02/20 13:00 108 H 25 H 124/83 12/02/20 12:53 110 H 22 126/85 12/02/20 12:50 110 H 25 H 126/85 12/02/20 12:00 110 H 26 H 12/02/20 11:30 109 H 22 12/02/20 11:00 103 H 25 H 12/02/20 10:37 107 H 21 12/02/20 10:35 107 H 22 124/79 12/02/20 09:01 37.7 C H 128 H 24 119/81 Pulse Ox 12/02/20 14:00 94 12/02/20 13:30 97 12/02/20 13:00 95 12/02/20 12:53 95 12/02/20 12:50 95 12/02/20 12:00 95 12/02/20 11:30 96 12/02/20 11:00 94 12/02/20 10:37 94 10/18/21 10:35 95 12/02/20 09:01 96 Lab & Micro Results (Past 24 Hours) RBC 4.72 M/uL (4.7-6.1) 12/02/20 WBC 14.13 K/uL (4.8-10.8) H 12/02/20 Hgb 13.8 g/dL (14.0-18.0) L 12/02/20 Hct 41.8 % (42-52) L 12/02/20 MCV 88.6 fL (80-100) 12/02/20 MCH 29.2 pg (25-34) 12/02/20 MCHC 33.0 g/dL (32-36) 12/02/20 RDW Standard Deviation 45.2 fL (36.4-46.3) 12/02/20 RDW Coefficient of Variation 13.9 % (11.5-14.5) 12/02/20 Plt Count 245 K/uL (130-400) 12/02/20 MPV 10.3 fL (7.4-10.4) 12/02/20 Neutrophils (%) (Auto) 78.6 % 12/02/20 Lymphocytes (%) (Auto) 11.6 % 12/02/20 Monocytes # (Auto) 1.06 K/uL (0.11-0.59) H 12/02/20 Eosinophils # (Auto) 0.19 K/uL (0-0.5) 12/02/20 Immature Granulocyte % (Auto) 0.8 % 12/02/20 Neutrophils # (Auto) 11.09 K/uL (1.4-6.5) H 12/02/20 Lymphocytes # (Auto) 1.64 K/uL (1.2-3.4) 12/02/20 Monocytes # (Auto) 1.06 K/uL (0.11-0.59) H 12/02/20 Eosinophils # (Auto) 0.19 K/uL (0-0.5) 12/02/20 Basophils # (Auto) 0.03 K/uL (0-0.2) 12/02/20 Immature Granulocyte # (Auto) 0.12 K/uL (0.00-0.02) H 12/02/20 Na 134 mmol/L (136-145) L 12/02/20 K 4.2 mmol/L (3.5-5.1) 12/02/20 Cl 101 mmol/L (98-107) 12/02/20 CO2 25 mmol/L (21-32) 12/02/20 Anion Gap 8.0 (3-11) 12/02/20 BUN 12 mg/dl (7-18) 12/02/20 Creatinine 0.82 mg/dl (0.6-1.4) 12/02/20 Estimated GFR ( Amer) 114.6 ml/min 12/02/20 Estimated GFR (Non-Af Amer) 98.9 ml/min 12/02/20 BUN/Creatinine Ratio 14.7 (10-20) 12/02/20 Glu 135 mg/dl (70-99) H 12/02/20 Ca 9.2 mg/dl (8.5-10.1) 12/02/20 Total Bilirubin 0.7 mg/dl (0.2-1) 12/02/20 AST 439 U/L (15-37) H 12/02/20 ALT 723 U/L (12-78) H 12/02/20 Alkaline Phosphatase 152 U/L (45-117) H 12/02/20 TP 7.7 gm/dl (6.4-8.2) 12/02/20 Albumin 2.2 gm/dl (3.4-5.0) L 12/02/20 Globulin 5.5 gm/dl (2.5-4.0) H 12/02/20 Albumin/Globulin Ratio 0.4 (0.9-2) L 12/02/20 Mg 2.4 mg/dl (1.8-2.4) 12/02/20 10:30 12/02/20 Calcium Level 9.2 mg/dl (8.5-10.1) 12/02/20 10:30 12/02/20 Prothromb Time International Ratio 1.2 (0.9-1.1) H 12/02/20 10:30 12/02/20 Diagnostic Findings (Past 24 Hours) Chest X-Ray 12/02/20 09:25 SINGLE VIEW CHEST CLINICAL HISTORY: Sepsis. FINDINGS: An AP, portable, upright chest radiograph is obtained. No prior studies are available for comparison at the time of dictation. The cardiomediastinal silhouette is unremarkable. There is mild bibasilar atelectasis. The lungs and pleural spaces are otherwise clear. No pneumothorax is seen. The bony thorax is grossly intact. IMPRESSION: No active disease in the chest. ACT 112: Negative or not required by law. Electronically signed by: Kareem Olivarez M.D. 12/02/2020 10:01 AM Abdomen/Pelvis CT 12/02/20 11:30 CT ANGIOGRAM OF THE CHEST; CT SCAN OF THE ABDOMEN AND PELVIS WITH IV CONTRAST CLINICAL HISTORY: Atypical chest pain. Dyspnea. Generalized weakness. Elevated hepatic transaminases. Leukocytosis. Covid. COMPARISON STUDY: Chest x-ray dated 12/02/2020. TECHNIQUE: Following the IV administration of 120 of Optiray 320, CT angiogram of the chest is performed from the upper abdomen to the thoracic inlet utilizing the pulmonary embolus protocol. Images are reviewed in the axial, sagittal, coronal planes. 3-D MIPS images are created and assessed. Subsequently, CT scan of the abdomen and pelvis was performed from the lung bases to the proximal femora. Images are reviewed in the axial, sagittal, and coronal planes. IV contrast was administered without complication. A dose lowering technique was utilized adhering to the principles of ALARA. CT DOSE: 1960.54 mGy.cm FINDINGS: CHEST: Thyroid: Imaged portions of the thyroid gland are normal in size and attenuation. Thoracic aorta: The thoracic aorta is normal in caliber and demonstrates standard 3-vessel arch anatomy. No dissection is seen. Pulmonary vasculature: The pulmonary trunk is normal in caliber. There is extensive pulmonary embolus. Thrombus is seen within the main pulmonary artery bilaterally. Thrombus on the right extends into the right upper, middle, lower lobar pulmonary arteries, extending into segmental and subsegmental branches. Thrombus on the left extends into the left upper lobe pulmonary artery into segmental and subsegmental branches. Segmental and subsegmental pulmonary emboli are seen within the left lower lobe and lingula. Heart: The heart is top normal in size and without pericardial effusion. Lungs and pleural spaces: Evaluation of the lung parenchyma is significantly degraded by motion artifact. There are small right and trace left pleural effusions with bibasilar consolidation. The trachea and central airways are clear. A low suspicion 4 mm pleural-based nodule in the left lower lobe as seen on image #141. Mild groundglass opacities are noted in the upper lobes. Mediastinum: There are prominent mediastinal lymph nodes. A prevascular node measures 10 mm in short axis. The subcarinal node measures 14 mm in short axis. Melody: Prominent hilar nodes measure up to 11 mm in short axis. Axillae: There is no axillary lymphadenopathy. Bony thorax: No lytic or blastic lesions are identified. ABDOMEN AND PELVIS: Liver: The contrast-enhanced liver is enlarged, measuring 20.7 cm in length. The liver demonstrates diffusely diminished attenuation consistent with hepatic steatosis. There is no intrahepatic or ductal dilatation. The hepatic veins and portal veins are patent. Gallbladder: Unremarkable. Spleen: Normal in size and attenuation. Pancreas: There is a 1.6 cm ovoid hypervascular nodule within or adjacent to the pancreatic tail on image #120. The pancreas is otherwise normal in appearance. Adrenal glands: Unremarkable. Kidneys: The contrast enhanced kidneys are normal in size and without hydronephrosis. The kidneys enhance symmetrically. Abdominal vasculature: The abdominal aorta is normal in course and caliber. Stomach and bowel: There is a small hiatal hernia. An umbilical hernia contains a nonobstructed segment of small bowel. Mild fecal retention is seen throughout the colon. There is no bowel obstruction. There is mild colonic diverticulosis without CT evidence of acute diverticulitis. A small duodenal diverticulum is noted. There is mild nonspecific mesenteric infiltration identified around several loops of small bowel. No thick walled bowel loops are identified. There is no pneumatosis intestinalis or portal venous gas. The appendix is well- visualized and normal. Peritoneum: There is no intraperitoneal free air or abdominal ascites. Lymphadenopathy: None. Pelvic viscera: The bladder, prostate, and seminal vesicles are normal as visualized. Skeletal structures: There is mild lumbosacral spondylosis. Sclerotic change is noted in the sacroiliac joints, left greater than right. No lytic or blastic lesions are seen. IMPRESSION: 1. Extensive bilateral pulmonary emboli as above. 2. Small right and trace left pleural effusions with dependent bibasilar consolidation. This could represent atelectasis and/or pneumonia. Clinical correlation will be required. 3. Mild groundglass opacities are present in the upper lobes, likely corresponding to the reported history of a viral pneumonia. 4. There is mild nonspecific infiltration identified around several loops of small bowel. No bowel wall thickening is identified and there is no obstruction. No pneumatosis intestinalis or portal venous gas is seen. Correlate clinically for evidence of a mild nonspecific enteritis. 5. Prominent mediastinal and hilar lymph nodes are nonspecific and likely reactive. 6. There is a 1.6 cm ovoid hypervascular nodule within or adjacent to the pancreatic tail. This may represent a splenule. A pancreatic lesion is not exc luded. Correlation with a nonemergent/outpatient contrast-enhanced pancreatic protocol MRI is recommended for further assessment. 7. An umbilical hernia contains a nonobstructed segment of small bowel. 8. Additional findings as above. ACT 112: Positive. There are findings on this exam that require communication between the performing entity and the patient following Patient Test Result Information Act ([place] Act 112) guidelines. Electronically signed by: Kareem Olivarez M.D. 12/02/2020 12:58 PM Chest CTA 12/02/20 11:30 CT ANGIOGRAM OF THE CHEST; CT SCAN OF THE ABDOMEN AND PELVIS WITH IV CONTRAST CLINICAL HISTORY: Atypical chest pain. Dyspnea. Generalized weakness. Elevated hepatic transaminases. Leukocytosis. Covid. COMPARISON STUDY: Chest x-ray dated 12/02/2020. TECHNIQUE: Following the IV administration of 120 of Optiray 320, CT angiogram of the chest is performed from the upper abdomen to the thoracic inlet utilizing the pulmonary embolus protocol. Images are reviewed in the axial, sagittal, coronal planes. 3-D MIPS images are created and assessed. Subsequently, CT scan of the abdomen and pelvis was performed from the lung bases to the proximal femora. Images are reviewed in the axial, sagittal, and coronal planes. IV contrast was administered without complication. A dose lowering technique was utilized adhering to the principles of ALARA. CT DOSE: 1960.54 mGy.cm FINDINGS: CHEST: Thyroid: Imaged portions of the thyroid gland are normal in size and attenuation. Thoracic aorta: The thoracic aorta is normal in caliber and demonstrates standard 3-vessel arch anatomy. No dissection is seen. Pulmonary vasculature: The pulmonary trunk is normal in caliber. There is extensive pulmonary embolus. Thrombus is seen within the main pulmonary artery bilaterally. Thrombus on the right extends into the right upper, middle, lower lobar pulmonary arteries, extending into segmental and subsegmental branches. Thrombus on the left extends into the left upper lobe pulmonary artery into segmental and subsegmental branches. Segmental and subsegmental pulmonary emboli are seen within the left lower lobe and lingula. Heart: The heart is top normal in size and without pericardial effusion. Lungs and pleural spaces: Evaluation of the lung parenchyma is significantly degraded by motion artifact. There are small right and trace left pleural effusions with bibasilar consolidation. The trachea and central airways are clear. A low suspicion 4 mm pleural-based nodule in the left lower lobe as seen on image #141. Mild groundglass opacities are noted in the upper lobes. Mediastinum: There are prominent mediastinal lymph nodes. A prevascular node measures 10 mm in short axis. The subcarinal node measures 14 mm in short axis. Melody: Prominent hilar nodes measure up to 11 mm in short axis. Axillae: There is no axillary lymphadenopathy. Bony thorax: No lytic or blastic lesions are identified. ABDOMEN AND PELVIS: Liver: The contrast-enhanced liver is enlarged, measuring 20.7 cm in length. The liver demonstrates diffusely diminished attenuation consistent with hepatic steatosis. There is no intrahepatic or ductal dilatation. The hepatic veins and portal veins are patent. Gallbladder: Unremarkable. Spleen: Normal in size and attenuation. Pancreas: There is a 1.6 cm ovoid hypervascular nodule within or adjacent to the pancreatic tail on image #120. The pancreas is otherwise normal in appearance. Adrenal glands: Unremarkable. Kidneys: The contrast enhanced kidneys are normal in size and without hydronephrosis. The kidneys enhance symmetrically. Abdominal vasculature: The abdominal aorta is normal in course and caliber. Stomach and bowel: There is a small hiatal hernia. An umbilical hernia contains a nonobstructed segment of small bowel. Mild fecal retention is seen throughout the colon. There is no bowel obstruction. There is mild colonic diverticulosis without CT evidence of acute diverticulitis. A small duodenal diverticulum is noted. There is mild nonspecific mesenteric infiltration identified around several loops of small bowel. No thick walled bowel loops are identified. There is no pneumatosis intestinalis or portal venous gas. The appendix is well- visualized and normal. Peritoneum: There is no intraperitoneal free air or abdominal ascites. Lymphadenopathy: None. Pelvic viscera: The bladder, prostate, and seminal vesicles are normal as visualized. Skeletal structures: There is mild lumbosacral spondylosis. Sclerotic change is noted in the sacroiliac joints, left greater than right. No lytic or blastic lesions are seen. IMPRESSION: 1. Extensive bilateral pulmonary emboli as above. 2. Small right and trace left pleural effusions with dependent bibasilar consolidation. This could represent atelectasis and/or pneumonia. Clinical correlation will be required. 3. Mild groundglass opacities are present in the upper lobes, likely corresponding to the reported history of a viral pneumonia. 4. There is mild nonspecific infiltration identified around several loops of small bowel. No bowel wall thickening is identified and there is no obstruction. No pneumatosis intestinalis or portal venous gas is seen. Correlate clinically for evidence of a mild nonspecific enteritis. 5. Prominent mediastinal and hilar lymph nodes are nonspecific and likely reactive. 6. There is a 1.6 cm ovoid hypervascular nodule within or adjacent to the pancreatic tail. This may represent a splenule. A pancreatic lesion is not excluded. Correlation with a nonemergent/outpatient contrast-enhanced pancreatic protocol MRI is recommended for further assessment. 7. An umbilical hernia contains a nonobstructed segment of small bowel. 8. Additional findings as above. ACT 112: Positive. There are findings on this exam that require communication between the performing entity and the patient following Patient Test Result Information Act ([place] Act 112) guidelines. Electronically signed by: Kareem Olivarez M.D. 12/02/2020 12:58 PM RT Ventilator Mngmt (Last Documented) Ventilator Ordered Settings Respiratory Rate 16 12/02/20 14:00 Ventilator - PT Measurements Respiratory Rate 16 PG Care Time/CCT Total # of Minutes Spent Total Time Spent with Patient: Total time spent is greater than 50% in coordination of care (as documented) at patient's floor/unit and/or counseling patient: Coding Level of Care Code 49362 Inpt Consult Level 4 Diagnoses Pulmonary embolism I26.99 COVID U07.1
[2020-12-02] MEDS: HEPARIN SODIUM/DEXTROSE 25,000 UNITS/500 ML BAG IV SCH (15:35)
[2020-12-02 16:16] LABS: Hepatitis B Surf Ag Rflx Conf Neg (Neg)
[2020-12-02 16:21] LABS: C Reactive Protein 15.2 mg/dl (0-0.29); Ferritin 6090.7 ng/ml (8-388)
[2020-12-02 16:45] LABS: Hepatitis C IgG 13Yrs+Old_Rflx Neg (Neg)
[2020-12-02] MEDS: cefTRIAXone SODIUM 2,000 MG in DEXTROSE 5% 50 ML IV SCH (16:46)
[2020-12-02 22:01] LABS: Partial Thromboplastin Ratio 1.4; Partial Thromboplastin Time 36.1 Seconds (21.0-31.0)
[2020-12-03] MEDS: HEPARIN SODIUM/DEXTROSE 25,000 UNITS/500 ML BAG IV SCH ×2 (05:52→12:54)
[2020-12-03 06:30] LABS: Basophils # (auto) 0.03 K/uL (0-0.2); Basophils % (auto) 0.3 %; Eosinophils # (auto) 0.15 K/uL (0-0.5); Eosinophils % (auto) 1.4 %; Hematocrit (blood only) 36.4 % (42-52); Hemoglobin 12.4 g/dL (14.0-18.0); Immature Granulocytes # (auto) 0.08 K/uL (0.00-0.02); Immature Granulocytes % (auto) 0.7 %; Lymphocytes # (auto) 1.61 K/uL (1.2-3.4); Lymphocytes % (auto) 14.7 %; Mean Corpuscular Hemoglobin 30.1 pg (25-34); Mean Corpuscular Hgb Conc 34.1 g/dL (32-36); Mean Corpuscular Volume 88.3 fL (80-100); Mean Platelet Volume 9.8 fL (7.4-10.4); Monocytes # (auto) 0.94 K/uL (0.11-0.59); Monocytes % (auto) 8.6 %; Neutrophils # (auto) 8.11 K/uL (1.4-6.5); Neutrophils % (auto) 74.3 %; Platelet Count 204 K/uL (130-400); RDW Coefficient of Variation 13.8 % (11.5-14.5); RDW Standard Deviation 44.4 fL (36.4-46.3); Red Blood Count 4.12 M/uL (4.7-6.1); White Blood Count 10.92 K/uL (4.8-10.8)
[2020-12-03 06:59] LABS: Partial Thromboplastin Ratio 1.5; Partial Thromboplastin Time 40.1 Seconds (21.0-31.0)
[2020-12-03 07:02] LABS: BUN Creatinine Ratio 13.4 (10-20); Calcium 8.7 mg/dl (8.5-10.1); Creatinine Clr Calc Pharmacy 152.1 ml/min; Est GFR (African American) 123.7 ml/min; Est GFR (Non-African American) 106.8 ml/min; Magnesium 2.1 mg/dl (1.8-2.4); Potassium 3.8 mmol/L (3.5-5.1)
[2020-12-03 07:58] LABS: Estimated Average Glucose 128 mg/dl; Hemoglobin A1C 6.1 % (4.5-5.6)
[2020-12-03] MEDS ORDERED: AZITHROMYCIN 250 MG TAB PO SCH (09:00)
--- NOTE | 2020-12-03 09:12 | Gastrointestinal Consultation ---
Date of Consultation December 03, 2020 Assessment & Plan (1) COVID: (2) Pulmonary embolism: (3) Transaminitis: Pt is a 55 y/o male admitted w COVID pneumonia, PE, currently on Heparin gtt, Ceftriaxone & Azithromycin. He was found to have elevated LFTs on admission, noted fatty liver on CT scan. Denies previous hx of personal/family hx of liver disease, autoimmune disorders. Abd exam benign, and he is not displaying s/s of acute liver failure or decompensated liver disease. LFTs are trending down. Suspect elevated LFTs likely related to COVID infection. Should be normalizing as his infection is improved. Would recommend AIH serologies (KEANU, AMA, anti smooth muscle antibody), Ferritin, iron profile, Ceruloplasmin, acute hepatitis panel, TTG IgA Ab if further labs are to be obtained (currently on airborne isolation and AM labs already obtained thus we didn't order these to avoid lab personnel exposure to COVID). If serologies above not obtained during this admission,we can obtain them on outpt GI clinic f/u. Recommend avoidance of ETOH, tobacco products. Limit APAP <2g daily if needed Pls recall GI prn Supervising Physician Co-Signing Physician Notes Benign abdominal exam, no visible jaundice noted on skin or in his eyes Transaminitis likely secondary to covid infection, he thinks he was exposed during a road trip mid oct 2020 where subsequently 3 other people from that trip had covid and his symptoms began thereafter. Agree [facility] further plan of care as above. History of Present Illness Reason for Consultation: Elevated LFTs Requesting Physician: Dr. Laura Pitts Attending Physician: Dr. Simran Tomas History of Present Illness Pt is a 55 y/o male, who presented yesterday w c/o SOB x 2 weeks, COVID like symptoms including sinus congestion, cough, lack of appetite, loss of taste/smell and fever about 1 month ago. He wasn't vaccinated against COVID 19. He tested positive for COVID 19, also noted to have signs of bilateral PE and pneumonia on imaging studies. He does not require O2 supplement. Currently started on Heparin gtt and antibx. It is noted that his LFTs are up: Tbili 0.7, AST 439, ALT 723, Alk phos 152 thus GI was consulted. Pt denies any hx of liver disease. Doesn't have PCP, not taking prescription meds at home. Was taking Motrin and Tylenol for fever, aches. He denies symptoms of jaundice, n/v, changes in bowel habits, no abd distension or leg edema. Lost some weight due to poor appetite, loss of smell/taste. No family hx of liver disease, autoimmune disease, copper, iron overload. + smokeless tobacco use. Daily beer intake of 4-5 until 1 month ago. Denies rec drugs, no tattoos or body piercing. CT abd/pelvis reviewed: + hepatic steatosis, no signs of biliary ductal dilation, unremarkable gallbladder. Allergies Allergy/AdvReac Type Severity Reaction Status Date / Time No Known Allergies Allergy Unverified 12/02/20 09:39 Home Medications Medication Instructions Recorded Confirmed Type No Known Home Medications 12/02/20 12/02/20 History Patient History Medical History No significant past medical history Surgical History No significant past surgical history Family History Mother Diabetes Hypertension Father Myocardial infarction Coronary heart disease Hypertension Diabetes Brother Diabetes Sister Diabetes Social History Smoking Status: Never smoker Tobacco Type: Smokeless Tobacco (Dip or Chew) Cigarettes Per Day: 1/2 can of snuff/day; Hx Alcohol Use: Yes Alcohol type: beer Alcohol Intake Frequency Comment: prior to covid sx, daily, last drink a month ago Hx Substance Use: No Preferred Language: Kenyan Communication Ability: Effective Tail Board Man Required: No Beliefs That Will Affect Care: None marital status: Current Living Situation: Spouse current occupational status: employed 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[employer] Feels Safe at Home: Yes Review of Systems Review of Systems: All systems reviewed & are unremarkable except as noted in HPI & below Physical Exam Constitutional: WD/WN, vitals as above well groomed, cooperative and comfortable Eyes: PERRL, conjunctivae normal, anicteric sclerae ENMT: external ear and nose normal, oropharynx normal Cardiovascular: RRR, no murmur, no edema Gastrointestinal (Abdomen): normal bowel sounds, soft, nontender, no hepatosplenomegaly Skin: no rashes, warm and dry no jaundice Neurologic: Motor/Sensory: no asterixis Psychiatric: A+Ox3, euthymic affect Lymphatic: no lymphedema Results & Data ([facility]) Vital Signs (Past 12 Hours) Vital Signs Temp Pulse Pulse Resp BP BP Pulse Ox 12/03/20 08:00 99 H 12/03/20 07:42 98 H 12/03/20 07:19 36.9 C 98 H 24 112/71 94 12/03/20 05:19 96 12/03/20 03:58 37.2 C 103 H 20 108/76 91 12/03/20 00:00 99 H 99 12/02/20 23:11 37.1 C 99 H 24 112/71 99 (1) Pulmonary embolism Pulmonary embolism type: multiple subsegmental (without acute cor pulmonale) Qualified Code(s): I26.94 - Multiple subsegmental pulmonary emboli without acute cor pulmonale
--- NOTE | 2020-12-03 09:44 | Pulmonology Progress Note ---
Date of Service December 03, 2020 Assessment & Plan (1) Pulmonary embolism: Pulmonary embolism type: multiple subsegmental (without acute cor pulmonale) Qualified Code(s): I26.94 - Multiple subsegmental pulmonary emboli without acute cor pulmonale (2) COVID: Plan: Impression: 55-year-old male with likely diagnosis of Covid 4 weeks ago who presents now with chest pain shortness of breath and acute bilateral PEs. He is hemodynamically stable with the exception of slight tachycardia. He is not requiring any supplemental oxygen. Recommendations: 1. Acute PE: Continue anticoagulation the form of heparin. His troponin was negative. Hemodynamically stable without an oxygen requirement. He can transition off the heparin infusion. Options would include DOAC, low molecular weight heparin, or Coumadin. Anticoagulation should be continued for at least 3 months in the setting of Covid infection. 2. Age-appropriate cancer screening should be conducted in the outpatient setting when clinically feasible. 3. Covid: The patient is not hypoxemic. He does not meet criteria for any adjuvant therapies including dexamethasone, remdesivir, or immune modulators. Continue to follow clinically at this point time but would not keep him in the hospital for this diagnosis. 4. Possible pneumonia: The patient does have some groundglass opacities and compressive atelectasis at the bases. Is been initiated on Rocephin and azithromycin with anything to reasonable. Rocephin can be increased to 1 g daily and azithromycin should be decreased to 250 mg daily. He can likely been transition to oral antibiotics relatively quickly. 5. Recommend ambulating the patient in the hallway and performing formal two- step analysis to ascertain whether or not the patient requires supplemental oxygen or not. Thanks for the opportunity participating in the care of this patient. We will sign off at this point time. Feel free to contact us if we can be of additional assistance Admission and Anticipated Discharge Date Admission Date: December 02, 2020 Subjective Patient seen and examined. EMR reviewed. States that shortness of breath feels about the same. He is not on oxygen and has not a saturation of 95% on room air. Occasional cough but no sputum production. No syncope presyncope dizziness or lightheadedness. Review of Systems Review of Systems: All systems reviewed & are unremarkable except as noted in Subjective Physical Exam Constitutional: WD/WN, vitals as above Neck: trachea midline, no thyromegaly Respiratory: normal respiratory effort, lungs clear to auscultation Cardiovascular: RRR, no murmur, no edema Gastrointestinal (Abdomen): normal bowel sounds, soft, nontender, no hepatosplenomegaly Musculoskeletal: Extremities: extremities normal to inspection Skin: no rashes, warm and dry Lymphatic: no cervical lymphadenopathy Results & Data Results & Data ([facility]) Vital Signs (Past 12 Hours) Vital Signs Temp Pulse Pulse Resp BP BP Pulse Ox 12/03/20 08:00 99 H 12/03/20 07:42 98 H 12/03/20 07:19 36.9 C 98 H 24 112/71 94 12/03/20 05:19 96 12/03/20 03:58 37.2 C 103 H 20 108/76 91 12/03/20 00:00 99 H 99 12/02/20 23:11 37.1 C 99 H 24 112/71 99 Laboratory Results 12/03/20 06:12 12/03/20 06:12 BNP 35 Diagnostic Findings No new imaging PG Care Time/CCT Total # of Minutes Spent Total Time Spent with Patient: Total time spent is greater than 50% in coordination of care (as documented) at patient's floor/unit and/or counseling patient: Coding Level of Care Code 39919 Subseq Hosp Care Lvl 2 Diagnoses Pulmonary embolism I26.94 Pulmonary embolism type: multiple subsegmental (without acute cor pulmonale) COVID U07.1
[2020-12-03 09:51] LABS: Albumin Level 1.9 gm/dl (3.4-5.0); Bilirubin Direct 0.2 mg/dl (0-0.2); Bilirubin,Total 0.5 mg/dl (0.2-1); Total Protein 6.5 gm/dl (6.4-8.2)
[2020-12-03] MEDS ORDERED: ENOXAPARIN INJ 120 MG/0.8 ML SYR SQ SCH (12:00)
[2020-12-03] MEDS ORDERED: WARFARIN SOD 5 MG TAB PO ONE (12:00)
--- NOTE | 2020-12-03 12:21 | Electrocardiogram Report ---
Test Reason : Blood Pressure : / mmHG Vent. Rate : 108 BPM Atrial Rate : 108 BPM P-R Int : 132 ms QRS Dur : 084 ms QT Int : 332 ms P-R-T Axes : 044 016 045 degrees QTc Int : 444 ms Sinus tachycardia Otherwise normal ECG No previous ECGs available Confirmed by Sebastián Goldberg ([id number]) on 12/03/2020 12:21:12 PM Referred By: REFERRED SELF Confirmed By:Sebastián Goldberg
[2020-12-03] MEDS ORDERED: FLUARIX QUADRIVALENT 0.5 ML SYR IM ONE (13:00)
[2020-12-03] MEDS: cefTRIAXone SODIUM 2,000 MG in DEXTROSE 5% 50 ML IV SCH (13:17)
--- NOTE | 2020-12-03 14:24 | Discharge Summary ---
Date of Service December 03, 2020 Admission HPI Per Admitting Provider This is a 55-year-old male who has no known past medical history who presents ED secondary to worsening shortness of breath x 2 week. He states approximately 1 month ago on 11/01 he started developing Covid-like symptoms including sinus congestion, cough, fatigue, lack of appetite, loss of taste and smell and fever. He had fever as high as 104. He states a week prior to symptom onset he was at races with his 1 friend who is currently hospitalized and not doing well from COVID-19. He developed symptoms shortly after his friend. He did not get tested as an outpt. He had severe symptoms for approximately 2 weeks and symptoms started to improve. He had lack of appetite and fatigue linger for the past 2 weeks. He also has developed increasing shortness of breath and fatigue with minimal exertion. He was seen by his niece yesterday who is a nurse and encouraged him to come to the ER today for evaluation. In ED patient remained hemodynamically stable although he was tachycardic. Chest x-ray was performed and was negative for acute AK. Chest CTA revealed extensive bilateral pulmonary emboli with thrombus seen in the main pulmonary artery bilaterally. He tested positive for COVID-19. Number also notable for leukocytosis at 14.13k, elevated D-dimer 6750, glucose 135, AST 49, ALT 723, alk phos 152 Calcitonin 0.52. His urinalysis was negative. In ED he was started on IV heparin bolus and drip. Of significance patient does not have a primary care provider. He has not seen a physician in over 25 years. He does not smoke but does use smokeless tobacco about half a can a day. He also was a daily beer drinker until the past month and being sick with Covid. He admits to living with his and children who are all fully vaccinated. His did develop minor symptoms but has resolved. He is currently not vaccinated. Admission Exam Per Admitting Provider Constitutional: WD/WN, vitals as above, NAD, sitting up in bed, pleasant, conversing easily Head: Normocephalic, Atraumatic Eyes: PERRL, conjunctivae normal, anicteric sclerae ENMT: external ear and nose normal, oropharynx normal Neck: trachea midline, no thyromegaly normal visual inspection Respiratory: normal respiratory effort, lungs clear to auscultation, no wheeze, rales, rhonchi. Normal insp/exp effort, no accessory muscle use Cardiovascular: RRR, no murmur, no edema Vessels: no JVD or carotid bruit Chest: normal inspection of chest Abdomen: normal bowel sounds, soft, nontender, no hepatosplenomegaly Musculoskeletal: no cyanosis or clubbing, extremities motor strength 5/5 Skin: no rashes, warm and dry normal turgor Neurologic: PERRL, EOMI, accommodation nl, no face palsy, no dysarthria CN's II-XI intact bilaterally and moves all extremities Psychiatric: A+Ox3, euthymic affect Lymphatic: no cervical or axillary lymphadenopathy : deferred Discharge Data Allergies Allergy/AdvReac Type Severity Reaction Status Date / Time No Known Allergies Allergy Unverified 12/02/20 09:39 Consultations 12/02/20 13:30 ED Decision to Admit Stat 12/02/20 14:32 Consult Gastroenterology Routine Consult Pulmonology Routine Ordered Studies 12/02/20 11:30 CT abd pelvis IV con only Stat CT angio chest PE protocol Stat Hospital Course (1) COVID: (2) Pulmonary embolism: Covid-19 +, sx started 1 month ago on 11/01/20 CTA Chest: The pulmonary trunk is normal in caliber. There is extensive pulmonary embolus. Thrombus is seen within the main pulmonary artery bilaterally. Thrombus on the right extends into the right upper, middle, lower lobar pulmonary arteries, extending into segmental and subsegmental branches. Thrombus on the left extends into the left upper lobe pulmonary artery into segmental and subsegmental branches. Segmental and subsegmental pulmonary emboli are seen within the left lower lobe and lingula. ESR: 117 CRP: 15.20 Ferritin: 6090.7 Procal: 0.54 He is not hypoxic and does not meet treatment criteria for covid PNA Start IV heparin bolus and gtt consult pulm given extensive clot burden - appreciate their input, troponin WNL, obtai pro bnp given elevated procalcitonin, WBC will start empiric IV rocephin 2g daily and oral azithromycin 500mg daily for CAP (3) Abnormal CT of the abdomen: CT a/p: There is a 1.6 cm ovoid hypervascular nodule within or adjacent to the pancreatic tail. This may represent a splenule. A pancreatic lesion is not excluded. Correlation with a nonemergent/outpatient contrast-enhanced pancreatic protocol MRI is recommended for further assessment. (4) Transaminitis: AST 439, ALT 723, ALP 152, Total Bili 0.7 No GI Sx obtain acute hep panel possibly in setting of viral illness CT a/p: Hepatic steatosis, gallbladder normal, no intrahepatic biliary duct dilatation + history of significant alcohol use, daily beer drinker, last drink 1 month ago prior to coming in with Covid consult GI Dispo: PCU PCP: None, will need to establish PCP at discharge FULL CODE Pt was seen and examined in collaboration with Dr. Pitts, please see addendum Discharge Plan Discharge Items Patient Disposition: Home - Self-Care Reason For Visit: COVID, BILATERAL PE Discharge Diagnosis: bilateral pulmonary embolus covid-19 infection pneumonia elevated transaminases Condition on Discharge: Good Activity: Resume your previous activity Non-emergency contact: Primary Care Provider Call non-emergency contact if: you have any medication questions, your symptoms worsen, your pain is not controlled, your pain is worsening and your pain is unusual for you Follow-up/Referrals: Jose Velazquez MD [Outside Practitioners] - (Date & Time 12/09/2020 3:20 PM Provider Jose Velazquez MD Department [facility] ) Diet: Regular Addtl Attending Provider Instructions: Please take all medications as instructed on discharge list below. You are being given warfarin which is a long-acting blood thinner. This will be the main medication to treat your blood clots in your lungs, and you need to take this for 3 to 6 months. Guidance on the timeline will be determined by your physician. As this takes a few days to become therapeutic (INR 2-3), you will need to inject yourself under the skin with enoxaparin 110mg daily. As you are receiving a 120mg pre-filled syringe, you will just need to waste 10mg prior to administering each dose to equal 110mg. Please continue this until your INR level is checked and is 2-3. You are being given a short course of antibiotics to treat a pneumonia. Follow-up chest imaging is recommended in 4-6 weeks to ensure complete resolution of pneumonia. This may be ordered by your primary care physician. You were found to have elevated liver enzymes on your labwork. This may be from the covid virus itself, but also may be worse if you drink alcohol. It is VERY IMPORTANT that you stay away from all alcohol at this time to ensure your liver has time to heal from this insult. Additionally, please keep any acetaminophen (Tylenol) intake to no more than 2grams in 24 hours. Repeat bloodwork would be recommended to ensure this resolves to normal. Furthermore, you were seen by a gastroenterology specialist while in the hospital. It would be recommended to follow-up with her at [facility] in [place], [place] to continue a more comprehensive investigation of the rise in your liver enzymes. Please follow-up with your primary care physician at the date and time listed above. Follow-up is very important for refills, monitoring, etc. If you cannot make this appointment please reschedule. It was a pleasure taking care of you! Please call if you have any questions or problems. You can reach a [facility] hospitalist on duty at [facility] 24 hours a day by calling [phone]. Take care of yourself. Laura Pitts DO [facility] Pending Studies at Discharge: No Stand-Alone Forms: My [facility] Medications and DC Order Prescriptions: New azithromycin 250 mg Tablet 250 mg PO QAM Qty: 4 RF: 0 cefpodoxime 200 mg tablet 200 mg PO BID Qty: 14 RF: 0 enoxaparin [Lovenox] 120 mg/0.8 mL syringe 120 mg subcut Q12H Qty: 8 RF: 1 warfarin 5 mg tablet 5 mg PO DAILY Qty: 30 RF: 0 Discharge Orders: Discharge Order (Routine); Ordered 12/03/20 Ordered By: Laura May/Other Patient Handouts: A1C, Prediabetes, What to Know When TakingWarfarin, 5 Steps for Eating Healthier Admission Data Admit Date/Time: 12/02/20 13:44 Attending Provider: Laura Pitts Admit Provider: Laura Pitts Primary Care Provider: PCP,NO Other Providers: Laura Pitts ; Dillan Gil ; Simran Tomas Other Interventions: Discharge Summary Assessment (RN) Last Done: 12/03/20 13:43
[2020-12-04 03:26] LABS: Hepatitis A Antibody IgM NON-REACTIVE (NON-REACTIVE); Hepatitis B Core Antibody IgM NON-REACTIVE (NON-REACTIVE)
== END 2020-12-03 15:12 | disposition home or self-care (01) | DRG 177 ==
LOC: ED 08:54 → 2E 13:44